=== PATIENT | female | born 1940 | race Asian ===

== ENCOUNTER 2017-08-25 12:36 | Inpatient (IN) | payer OTHER ==
[~2017-08-25] VITALS: Ht 154.9 cm; Wt 54.4 kg
[2017-08-25] MEDS ORDERED: ISOSORBIDE MONO60 M1 PO (12:47)
[2017-08-25] MEDS ORDERED: SIMVASTATIN20 MG ORAL (12:47)
[2017-08-25] MEDS ORDERED: AMLODIPINE BESYL5 MG ORAL (12:47)
[2017-08-25] MEDS ORDERED: ASPIRIN EC81 MG ORAL (12:47)
[2017-08-25] MEDS ORDERED: LOSARTAN-HCTZ1 EACH ORAL (12:47)
[2017-08-25] MEDS ORDERED: OMEPRAZOLE40 M1 ORAL (12:47)
[2017-08-25 13:09] VITALS: BP 144/82
--- NOTE | 2017-08-25 13:28 | Emergency Room Report ---
History of Present Illness General Chief Complaint: Nausea, Vomiting, and Diarrhea Present Illness HPI Patient is a 68-year-old female presents today with complaints of chest painy a week ago. She states the pain is intermittent, lasting minutes and currently 5 out of 10 in severity. She describes pain as throbbing and nonradiating. She states the pain improves with her blood pressure medications. She notes associated shortness of breath, nausea, vomiting and weakness. Last episode of emesis was 2 days ago and she states she has not had an appetite since then. She denies diarrhea, fever, chills, abdominal pain or associated symptoms. She has a history of hypertension, previous heart attacks and quadruple bypass 3 years ago. She's not had a recent stress test. Body Former is Dr. Marks. Patient is a former smoker. (Alexa Call P.A.) Allergies: Coded Allergies: No Known Allergies (Unverified , 08/25/17) Patient History Last Menstrual Period: na Reviewed Nursing Documentation: PMH: Agreed; PSxH: Agreed (Alexa Call P.Peewee) Review of Systems Cardiovascular: Reports: chest pain All Other Systems: negative except mentioned in HPI (Alexa Call P.A.) Physical Exam Vital Signs Date Time Temp Pulse Resp B/P (MAP) Pulse Ox O2 Delivery O2 Flow Rate FiO2 08/25/17 12:32 98.7 110 18 160/90 95 Room Air 98.8 Sp02 EP Interpretation: reviewed, normal General Appearance: no apparent distress, alert, GCS 15, non-toxic Head: normocephalic, atraumatic Eyes: bilateral eye normal inspection, bilateral eye PERRL ENT: hearing grossly normal, normal pharynx, no angioedema, normal voice Neck: full range of motion, supple/symm/no masses Respiratory: chest non-tender, lungs clear, normal breath sounds, speaking full sentences Cardiovascular #1: regular rate, rhythm, no edema Cardiovascular #2: 2+ carotid (R), 2+ carotid (L), 2+ radial (R), 2+ radial (L) , 2+ dorsalis pedis (R), 2+ dorsalis pedis (L) Gastrointestinal: normal bowel sounds, non tender, soft, non-distended, no guarding, no rebound Rectal: deferred Genitourinary: normal inspection, no CVA tenderness Musculoskeletal: back normal, gait/station normal, normal range of motion, non- tender, calf tenderness Neurologic: alert, oriented x3, responsive, motor strength/tone normal, sensory intact, speech normal Psychiatric: judgement/insight normal, memory normal, mood/affect normal, no suicidal/homicidal ideation Reflexes: 3+ bicep (R), 3+ bicep (L), 3+ tricep (R), 3+ tricep (L), 3+ knee (R) , 3+ knee (L) Skin: normal color, no rash, warm/dry, well hydrated Lymphatic: no adenopathy (Alexa Call P.A.) Medical Decision Making PA Attestation Supervising physician is Dr. Parrish Reaction to Intervention: Improved (Alexa Call P.A.) Medicare Attestation Please refer to the initial note for the history exam and presentation, patient was also seen by initial ER physician, at this time reevaluated by myself as well. Patient's d-dimer is mildly elevated. However at bedside patient does not have any shortness of breath or pleurisy. Patient's main complaint at this time was headache and increased dizziness. MRI imaging was obtained. Case discussed with the admitting physician and will follow closely as an inpatient process (Lea Cabrales DO) Diagnostic Impression: Primary Impression: Chest pain Additional Impressions: Nausea and vomiting Shortness of breath Dizziness ER Course The patient is a 76-year-old female with a history of hypertension previous ME who presents today with complaints of chest pain, shortness of breath and nausea. Patientfound to have an elevated d-dimer and VQ scan is ordered. Patient also complaining of dizziness, MRI brain is normal. Multiple reevaluations made, patient stable. Vitals are within normal limits.Discussed case with both Dr. Tania Cabrales physical agreed with findings and disposition. Patient is admitted to medicine. Laboratory Tests Test 08/25/17 22:00 08/26/17 07:10 08/26/17 11:00 08/26/17 15:10 Urine Color Yellow Urine Appearance Slightly cloudy Urine pH 6 (4.5-8.0) Urine Specific [place] 1.020 (1.005-1.035) Urine Protein 3+ (NEGATIVE) H Urine Glucose (UA) Negative (NEGATIVE) Urine Ketones 1+ (NEGATIVE) H Urine Occult Blood 3+ (NEGATIVE) H Urine Nitrite Positive (NEGATIVE) H Urine Bilirubin Negative (NEGATIVE) Urine Urobilinogen 4 MG/DL (0.0-1.0) H Urine Leukocyte Esterase 3+ (NEGATIVE) H Urine RBC 5-10 /HPF (0 - 2) H Urine WBC 10-15 /HPF (0 - 2) H Urine Squamous Epithelial Cells Few /LPF (NONE/OCC) Urine Bacteria Moderate /HPF (NONE) H Urine Osmolality 596 mOsm/kg (429-449) H Urine Random Sodium 42 mmol/L (20-110) White Blood Count 12.4 K/UL (4.8-10.8) H Red Blood Count 3.93 M/UL (4.20-5.40) L Hemoglobin 12.1 G/DL (12.0-16.0) Hematocrit 35.0 % (37.0-47.0) L Mean Corpuscular Volume 89 FL (80-99) Mean Corpuscular Hemoglobin 30.8 PG (27.0-31.0) Mean Corpuscular Hemoglobin Concent 34.6 G/DL (32.0-36.0) Red Cell Distribution Width 11.7 % (11.6-14.8) Platelet Count 198 K/UL (150-450) Mean Platelet Volume 7.6 FL (6.5-10.1) Neutrophils (%) (Auto) 83.5 % (45.0-75.0) H Lymphocytes (%) (Auto) 6.5 % (20.0-45.0) L Monocytes (%) (Auto) 9.5 % (1.0-10.0) Eosinophils (%) (Auto) 0.0 % (0.0-3.0) Basophils (%) (Auto) 0.4 % (0.0-2.0) Sodium Level 134 MMOL/L (136-145) L Potassium Level 3.4 MMOL/L (3.5-5.1) L Chloride Level 97 MMOL/L (98-107) L Carbon Dioxide Level 31 MMOL/L (21-32) Anion Gap 6 mmol/L (5-15) Blood Urea Nitrogen 28 mg/dL (7-18) H Creatinine 1.3 MG/DL (0.55-1.30) Estimate Glomerular Filtration Rate mL/min (>60) Glucose Level 144 MG/DL (74-106) H Osmolality 298 mOsm/kg (297-317) Uric Acid 6.1 MG/DL (2.6-7.2) Calcium Level 8.7 MG/DL (8.5-10.1) Total Bilirubin 0.5 MG/DL (0.2-1.0) Aspartate Amino Transferase (AST) 17 U/L (15-37) Alanine Aminotransferase (ALT) 16 U/L (12-78) Alkaline Phosphatase 61 U/L (46-116) Troponin I 0.000 ng/mL (0.000-0.056) 0.001 ng/mL (0.000-0.056) C-Reactive Protein, Quantitative 20.2 mg/dL (0.00-0.90) H Total Protein 7.0 G/DL (6.4-8.2) Albumin 2.9 G/DL (3.4-5.0) L Globulin 4.1 g/dL Albumin/Globulin Ratio 0.7 (1.0-2.7) L Triglycerides Level 84 MG/DL (30-150) Cholesterol Level 105 MG/DL (< 200) LDL Cholesterol 58 mg/dL (<100) HDL Cholesterol 35 MG/DL (40-60) L Cholesterol/HDL Ratio 3.0 (3.3-4.4) L Thyroid Stimulating Hormone (TSH) 0.178 uiU/mL (0.358-3.740) Free Thyroxine 1.32 NG/DL (0.76-1.46) Free Triiodothyronine 1.4 pg/mL (2.3-4.2) L Cortisol 16.0 UG/DL Prothrombin Time 9.7 SEC (9.30-11.50) Prothrombin Time INR 0.9 (0.9-1.1) PTT 35 SEC (23-33) H D-Dimer 1.52 mg/L FEU (0.00-0.49) H Test 08/27/17 06:25 Troponin I 0.000 ng/mL (0.000-0.056) (Alexa Call P.A.) EKG Diagnostic Results EKG Time: 13:27 Rate: tachycardiac ST Segments: other - t wave inversions, Other Impression RBBB (Alexa Call P.A.) Chest X-Ray Diagnostic Results Chest X-Ray Diagnostic Results : Chest X-Ray Ordered: Yes # of Views/Limited/Complete: 1 View Indication: Chest Pain EP Interpretation: Yes PA Xray: Interpretation reviewed, by supervising MD, and agrees with findings. Interpretation: other (Alexa Call) CT/MRI/US Diagnostic Results CT/MRI/US Diagnostic Results : Impression MRI Brain; Impression: Chronic and age-related changes Old left basal ganglia lacunar infarct Negative for acute intracranial bleed, mass effect, or infarct (Alexa Call) Last Vital Signs Date Time Temp Pulse Resp B/P (MAP) Pulse Ox O2 Delivery O2 Flow Rate FiO2 08/25/17 13:09 98.0 107 19 144/82 94 Room Air 98.0 Status: improved (Alexa Call) Disposition: ADMITTED INPATIENT Condition: Stable Alexa Call Aug 25, 2017 13:28 Lea Cabrales DO Aug 25, 2017 15:12
[2017-08-25 13:42] LABS: ALANINE AMINOTRANSFERASE 9 U/L (12-78); ALKALINE PHOSPHATASE 70 U/L (46-116); ASPARTATE AMINO TRANSFERASE 26 U/L (15-37); CHLORIDE 92 MMOL/L (98-107); CKMB < 0.5 NG/ML (0.0-3.6); CREATINE KINASE 183 U/L (26-308)
[2017-08-25 14:01] LABS: ANION GAP 14 mmol/L (5-15); BLOOD UREA NITROGEN 26 mg/dL (7-18); CARBON DIOXIDE 24 MMOL/L (21-32); CREATININE 0.9 MG/DL (0.55-1.30); POTASSIUM 3.5 MMOL/L (3.5-5.1); SODIUM 129 MMOL/L (136-145)
[2017-08-25 14:13] LABS: HEMATOCRIT 36.2 % (37.0-47.0); HEMOGLOBIN 12.5 G/DL (12.0-16.0); MEAN CORPUSCULAR VOLUME 89 FL (80-99); PLATELET COUNT 182 K/UL (150-450); RED BLOOD COUNT 4.07 M/UL (4.20-5.40); RED CELL DISTRIBUTION WIDTH 11.3 % (11.6-14.8); WHITE BLOOD COUNT 12.8 K/UL (4.8-10.8)
--- NOTE | 2017-08-25 14:13 | Diagnostic Imaging Report ---
Indication: Chest pain Technique: One view of the chest Comparison: none Findings: Clustered calcifications is seen in the right infrahilar region as well as small scattered parenchymal calcification in the right lung. There is slight blunting of left costophrenic sulcus. Lungs and pleural spaces are otherwise clear. Heart size is normal. Evidence of prior CABG Impression: Calcifications in the right lung, likely on the basis of old granulomatous disease Possible small left pleural effusion No acute process otherwise Other findings as noted
[2017-08-25 14:23] LABS: ALBUMIN 3.3 G/DL (3.4-5.0); ALBUMIN/GLOBULIN RATIO 0.7 (1.0-2.7)
[2017-08-25 15:00] VITALS: BP 141/73
[2017-08-25] MEDS ORDERED: Miralax 17gm pkt ORAL PRN (15:15)
[2017-08-25] MEDS ORDERED: Enalaprilat 2.5mg/2ml Inj IV PRN (15:15)
[2017-08-25] MEDS ORDERED: dilTIAZem HCl 25mg/5ml Inj IV PRN (15:15)
[2017-08-25] MEDS ORDERED: Nitroglycerin Subl 0.4mg tab SL PRN (15:15)
[2017-08-25] MEDS ORDERED: Albuterol/Ipratropium 3ml neb HHN PRN (15:15)
[2017-08-25] MEDS ORDERED: Morphine Sulfate 4mg/ml Inj IVP PRN (15:15)
--- NOTE | 2017-08-25 15:27 | Diagnostic Imaging Report ---
Indication: Dizziness, vertigo, altered mental status Technique: sagittal T1 fast spin echo, axial T1 FLAIR, axial T2 FLAIR, axial T2 FS PROPELLER, axial T2* GRE, axial diffusion weighted images. ADC and exponential ADC maps generated Comparison: Findings: No abnormal areas of restricted diffusion to suggest acute infarction. No acute hemorrhage or edema. No mass effect nor midline shift. There is mild age-related enlargement of the ventricles and extra-axial CSF spaces. There is minimal periventricular deep white matter high T2 signal consistent with chronic ischemic change. Old lacunar infarct is seen in the left lentiform nucleus. The vascular flow voids are preserved.. There is evidence of prior bilateral cataract surgery. The sinuses are unremarkable. Impression: Chronic and age-related changes Old left basal ganglia lacunar infarct Negative for acute intracranial bleed, mass effect, or infarct
[2017-08-25 16:30] VITALS: BP 154/90
--- NOTE | 2017-08-25 18:27 | Cardiology Progress Note ---
Assessment/Plan Assessment/Plan [id number] unless trop is neg or echo shows swma i will not perform cardic imagin orthostatic vital consider spep will have sternnal sereis usul med keep off diurtic for now Objective Last 24 Hour Vital Signs Date Time Temp Pulse Resp B/P (MAP) Pulse Ox O2 Delivery O2 Flow Rate FiO2 08/25/17 17:16 96 154/90 08/25/17 16:43 96 08/25/17 16:30 97.9 95 19 154/90 93 Room Air 97.9 08/25/17 15:00 98.0 97 19 141/73 97 Room Air 98.0 08/25/17 13:09 98.0 107 19 144/82 94 Room Air 98.0 08/25/17 12:32 98.7 110 18 160/90 95 Room Air 98.8 Laboratory Tests Test 08/25/17 12:50 08/25/17 13:00 08/25/17 14:00 Sodium Level 129 MMOL/L (136-145) L Potassium Level 3.5 MMOL/L (3.5-5.1) Chloride Level 92 MMOL/L (98-107) L Carbon Dioxide Level 24 MMOL/L (21-32) Anion Gap 14 mmol/L (5-15) Blood Urea Nitrogen 26 mg/dL (7-18) H Creatinine 0.9 MG/DL (0.55-1.30) Estimat Glomerular Filtration Rate mL/min (>60) Glucose Level 162 MG/DL (74-106) H Calcium Level 9.0 MG/DL (8.5-10.1) Total Bilirubin 1.0 MG/DL (0.2-1.0) Aspartate Amino Transf (AST/SGOT) 26 U/L (15-37) Alanine Aminotransferase (ALT/SGPT) 9 U/L (12-78) L Alkaline Phosphatase 70 U/L (46-116) Total Creatine Kinase 183 U/L (26-308) Creatine Kinase MB < 0.5 NG/ML (0.0-3.6) Creatine Kinase MB Relative Index 0.2 Troponin I 0.017 ng/mL (0.000-0.056) Total Protein 8.3 G/DL (6.4-8.2) H Albumin 3.3 G/DL (3.4-5.0) L Globulin 5.0 g/dL Albumin/Globulin Ratio 0.7 (1.0-2.7) L D-Dimer 1.80 mg/L FEU (0.00-0.49) H White Blood Count 12.8 K/UL (4.8-10.8) H Red Blood Count 4.07 M/UL (4.20-5.40) L Hemoglobin 12.5 G/DL (12.0-16.0) Hematocrit 36.2 % (37.0-47.0) L Mean Corpuscular Volume 89 FL (80-99) Mean Corpuscular Hemoglobin 30.8 PG (27.0-31.0) Mean Corpuscular Hemoglobin Concent 34.6 G/DL (32.0-36.0) Red Cell Distribution Width 11.3 % (11.6-14.8) L Platelet Count 182 K/UL (150-450) Mean Platelet Volume 6.9 FL (6.5-10.1) Neutrophils (%) (Auto) % (45.0-75.0) Lymphocytes (%) (Auto) % (20.0-45.0) Monocytes (%) (Auto) % (1.0-10.0) Eosinophils (%) (Auto) % (0.0-3.0) Basophils (%) (Auto) % (0.0-2.0) Differential Total Cells Counted 100 Neutrophils % (Manual) 88 % (45-75) H Lymphocytes % (Manual) 6 % (20-45) L Monocytes % (Manual) 4 % (1-10) Eosinophils % (Manual) 0 % (0-3) Basophils % (Manual) 0 % (0-2) Band Neutrophils 2 % (0-8) Platelet Estimate Adequate Platelet Morphology Normal Red Blood Cell Morphology Hypochromasia 1+ MARLEEN DUVALL Aug 25, 2017 18:27
[2017-08-25] MEDS ORDERED: Imdur 30mg tab ORAL SCH (18:30)
--- NOTE | 2017-08-25 18:54 | History and Physical ---
History of Present Illness General Date patient seen: Aug 25, 2017 Reason for Hospitalization: Nausea, Vomiting, and Diarrhea Present Illness HPI 68-year-old female with hx of CAD, CABG, HTN presented to ER with complaints of chest pain for a week, the pain is intermittent, lasting minutes and currently 5 out of 10 in severity. She is also c/o shortness of breath, nausea , vomiting and weakness. Last episode of emesis was 2 days ago and she states she has not had an appetite since then. She denies diarrhea, fever, chills, abdominal pain or associated symptoms. She is admitted to telemetry for further evaluation. Allergies: Coded Allergies: No Known Allergies (Unverified , 08/25/17) Medication History Scheduled Amlodipine Besylate* (Amlodipine Besylate*), 5 MG ORAL DAILY, (Reported) Aspirin Ec* (Aspirin Ec*), 81 MG ORAL DAILY, (Reported) Isosorbide Mononitrate (Isosorbide Mononitrate Er), 60 MG PO DAILY, (Reported) Losartan/Hydrochlorothiazide (Losartan-Hctz 100-12.5 Mg Tab), 1 TAB ORAL DAILY, (Reported) Omeprazole (Omeprazole), 40 MG ORAL DAILY, (Reported) Simvastatin (Zocor), 20 MG ORAL BEDTIME, (Reported) Patient History Healthcare decision maker N Resuscitation status Full Code Advanced Directive on File Past Medical/Surgical History Past Medical/Surgical History: (1) CAD (coronary artery disease) (2) Hx of CABG (3) History of hypertension Review of Systems All Other Systems: negative except mentioned in HPI Physical Exam General Appearance: WD/WN, no apparent distress Lines, tubes and drains: peripheral HEENT: normocephalic, atraumatic Neck: non-tender, normal alignment Respiratory/Chest: chest wall non-tender, lungs clear, decreased breath sounds Breasts: no masses Cardiovascular/Chest: normal peripheral pulses, normal rate Abdomen: normal bowel sounds, non tender Genitourinary/Rectal: normal genital exam Extremities: normal range of motion, non-pitting Last 24 Hour Vital Signs Date Time Temp Pulse Resp B/P (MAP) Pulse Ox O2 Delivery O2 Flow Rate FiO2 08/25/17 18:50 154/90 08/25/17 17:16 96 154/90 08/25/17 16:43 96 08/25/17 16:30 97.9 95 19 154/90 93 Room Air 97.9 08/25/17 15:00 98.0 97 19 141/73 97 Room Air 98.0 08/25/17 13:09 98.0 107 19 144/82 94 Room Air 98.0 08/25/17 12:32 98.7 110 18 160/90 95 Room Air 98.8 Laboratory Tests Test 08/25/17 12:50 08/25/17 13:00 08/25/17 14:00 Sodium Level 129 MMOL/L (136-145) L Potassium Level 3.5 MMOL/L (3.5-5.1) Chloride Level 92 MMOL/L (98-107) L Carbon Dioxide Level 24 MMOL/L (21-32) Anion Gap 14 mmol/L (5-15) Blood Urea Nitrogen 26 mg/dL (7-18) H Creatinine 0.9 MG/DL (0.55-1.30) Estimat Glomerular Filtration Rate mL/min (>60) Glucose Level 162 MG/DL (74-106) H Calcium Level 9.0 MG/DL (8.5-10.1) Total Bilirubin 1.0 MG/DL (0.2-1.0) Aspartate Amino Transf (AST/SGOT) 26 U/L (15-37) Alanine Aminotransferase (ALT/SGPT) 9 U/L (12-78) L Alkaline Phosphatase 70 U/L (46-116) Total Creatine Kinase 183 U/L (26-308) Creatine Kinase MB < 0.5 NG/ML (0.0-3.6) Creatine Kinase MB Relative Index 0.2 Troponin I 0.017 ng/mL (0.000-0.056) Total Protein 8.3 G/DL (6.4-8.2) H Albumin 3.3 G/DL (3.4-5.0) L Globulin 5.0 g/dL Albumin/Globulin Ratio 0.7 (1.0-2.7) L D-Dimer 1.80 mg/L FEU (0.00-0.49) H White Blood Count 12.8 K/UL (4.8-10.8) H Red Blood Count 4.07 M/UL (4.20-5.40) L Hemoglobin 12.5 G/DL (12.0-16.0) Hematocrit 36.2 % (37.0-47.0) L Mean Corpuscular Volume 89 FL (80-99) Mean Corpuscular Hemoglobin 30.8 PG (27.0-31.0) Mean Corpuscular Hemoglobin Concent 34.6 G/DL (32.0-36.0) Red Cell Distribution Width 11.3 % (11.6-14.8) L Platelet Count 182 K/UL (150-450) Mean Platelet Volume 6.9 FL (6.5-10.1) Neutrophils (%) (Auto) % (45.0-75.0) Lymphocytes (%) (Auto) % (20.0-45.0) Monocytes (%) (Auto) % (1.0-10.0) Eosinophils (%) (Auto) % (0.0-3.0) Basophils (%) (Auto) % (0.0-2.0) Differential Total Cells Counted 100 Neutrophils % (Manual) 88 % (45-75) H Lymphocytes % (Manual) 6 % (20-45) L Monocytes % (Manual) 4 % (1-10) Eosinophils % (Manual) 0 % (0-3) Basophils % (Manual) 0 % (0-2) Band Neutrophils 2 % (0-8) Platelet Estimate Adequate Platelet Morphology Normal Red Blood Cell Morphology Hypochromasia 1+ Height (Feet): 5 Height (Inches): 1.00 Weight (Pounds): 120 Medications Current Medications Medications (Trade) Dose Ordered Sig/Rick Route PRN Reason Start Time Stop Time Status Last Admin Dose Admin Acetaminophen (Tylenol) 650 mg Q4H PRN ORAL FEVER 08/25/17 15:15 09/24/17 15:14 Albuterol/ Ipratropium (Albuterol/ Ipratropium) 3 ml EVERY 4 HOURS PRN HHN Shortness of Breath 08/25/17 15:15 08/30/17 15:14 Amlodipine Besylate (Norvasc) 5 mg DAILY@1700 ORAL 08/25/17 17:00 09/24/17 16:59 08/25/17 17:16 Aspirin (Ecotrin) 81 mg DAILY ORAL 08/26/17 09:00 09/25/17 08:59 Atorvastatin Calcium (Lipitor) 20 mg BEDTIME ORAL 08/25/17 21:00 09/24/17 20:59 Diltiazem HCl (Cardizem) 10 mg EVERY HOUR PRN IV heart rate more than 120, 08/25/17 15:15 09/24/17 15:14 Enalaprilat (Vasotec) 2.5 mg EVERY 6 HOURS PRN IV sbp more than 160 08/25/17 15:15 09/24/17 15:14 Heparin Sodium (Porcine) (Heparin 5000 units/ml) 5,000 units EVERY 12 HOURS SUBQ 08/25/17 21:00 09/24/17 20:59 Isosorbide Mononitrate (Imdur) 30 mg DAILY ORAL 08/25/17 18:30 09/24/17 18:29 08/25/17 18:50 Losartan Potassium (Cozaar) 50 mg DAILY ORAL 08/26/17 09:00 09/25/17 08:59 Morphine Sulfate (Morphine Sulfate) 2 mg EVERY 4 HOURS PRN IVP severe Pain (Pain Scale 7-10) 08/25/17 15:15 09/01/17 15:14 Nitroglycerin (Ntg) 0.4 mg Every 5 Minutes PRN SL Prn Chest Pain 08/25/17 15:15 09/24/17 15:14 Ondansetron HCl (Zofran) 4 mg Q6H PRN IVP Nausea & Vomiting 08/25/17 15:15 09/24/17 15:14 Polyethylene Glycol (Miralax) 17 gm DAILYPRN PRN ORAL Constipation 08/25/17 15:15 09/24/17 15:14 Temazepam (Restoril) 15 mg HSPRN PRN ORAL Insomnia 08/25/17 15:15 09/01/17 15:14 Assessment/Plan Problem List: (1) Chest pain ICD Codes: R07.9 - Chest pain, unspecified SNOMED: 44402446 (2) Shortness of breath ICD Codes: R06.02 - Shortness of breath SNOMED: 456409465 (3) Nausea and vomiting ICD Codes: R11.2 - Nausea with vomiting, unspecified SNOMED: 73360593 (4) Leucocytosis ICD Codes: D72.829 - Elevated white blood cell count, unspecified SNOMED: 871097758, 810844104 (5) Hx of CABG ICD Codes: Z95.1 - Presence of aortocoronary bypass graft SNOMED: 395214696, 463503710 (6) History of hypertension ICD Codes: Z86.79 - Personal history of other diseases of the circulatory system SNOMED: 685694178 (7) CAD (coronary artery disease) ICD Codes: I25.10 - Atherosclerotic heart disease of [place] coronary artery without angina pectoris SNOMED: 33062113 Assessment/Plan serial ekg, troponin echocardiogram cardiology evaluation monitor BP check cultures ID to evaluate leucocytosis Amber Ryan MD Aug 25, 2017 18:54
[2017-08-25 20:00] VITALS: BP 115/64
[2017-08-25] MEDS: Atorvastatin 20mg tab ORAL SCH (20:29)
[2017-08-25] MEDS: Heparin 5000 units/ml inj SUBQ SCH (20:30)
--- NOTE | 2017-08-25 22:30 | Consultation ---
DATE OF CONSULTATION: 08/25/2017 CARDIOLOGY CONSULTATION CONSULTING PHYSICIAN: Patrice Ray M.D. REFERRING PHYSICIAN: Amber Ryan M.D. REASON FOR REFERRAL: Chest pain. HISTORY OF PRESENT ILLNESS: This is a 76-year-old [place] female, who speaks some [place] and mostly [place]ian. Information is obtained from one of our nursing staff who does speak Estonian. It appears that the patient has had some problems with some kind of sensation in her head as if hearing noises and at the same time, she had some pain in the chest at that time too. As I understand, the pains have been going on for some time. They get worse or improve in certain situations. There is no really relieving or exacerbating factor identified by the patient. No change with twisting and turning or coughing or taking a deep breath or walking. She is somewhat active. She walks to the store. She walks around the house. She does not seem to have to stop her activities because of these chest pain. There is no PND or orthopnea. She uses one pillow. There is occasional dizziness when she stands up and occasional palpitations. PAST MEDICAL HISTORY: Coronary artery disease, status post coronary artery bypass grafting. She really did not have any symptoms prior to her bypass grafting that was identified as part of a workup of some evaluation that was performed. She does not have diabetes, does have high blood pressure. No history of heart attack. No cancer. No stroke. No hepatitis or tuberculosis. No emphysema. No ulcers. No kidney problems. No liver problems, thyroid problems, anemia, or arthritis. She has a history of asthma. She has some kind of gynecological problem. She has had a hysterectomy and some ovarian problem that she had surgery, although apparently not removed. ALLERGIES: She is not allergic to any medication. SOCIAL HISTORY: She quit smoking more than 20 years ago when she had a bypass surgery. No alcoholic beverages. REVIEW OF SYSTEMS: GASTROINTESTINAL: She has had some change in the color of her stool that is darker. GENITOURINARY: She denies. PULMONARY: She does have a history of asthma. CONSTITUTIONAL: She denies. NEUROLOGIC: She has some numbness and tingling sensation in her toes. PHYSICAL EXAMINATION: GENERAL: Shows to be elderly female, in no respiratory distress. VITAL SIGNS: Blood pressure is 154/90, heart rate of 96, and temperature 98 degrees. NECK: Supple. No jugular venous distention. LUNGS: Clear to auscultation and percussion. CARDIAC: S1 is normal. S2 is normal. There is a systolic ejection murmur. No RV lifts, heaves, or thrills noted. ABDOMEN: Soft and nontender. Positive bowel sounds. EXTREMITIES: There is no edema. NEUROLOGIC: She is awake, alert, and responsive. LABORATORY AND DIAGNOSTIC DATA: Sodium 129, potassium 3.5, chloride 92, bicarbonate 24, BUN 26, creatinine 0.9, and glucose of 162. Troponin of 0.17. Total protein is 8.3, albumin of 3.3, and gamma globulins of 5. D-dimer is 1.8. Chest x-ray was performed in the emergency room that supposedly calcification of the right lung, likely of old granulomatous disease, possible small left pleural effusion. No otherwise acute processes. MRI of the brain that shows chronic and age-related changes, old basal ganglia lacunar infarction. Negative for acute intracranial bleed, mass effects, or infarcts. EKG shows normal sinus rhythm with leftward axis, incomplete left bundle-branch conduction defect. Some nonspecific T-wave changes, although the T-wave inversion in V1 through V4, may be related to the right bundle conduction defect. ASSESSMENT AND PLAN: 1. Atypical chest pain. 2. Head noises. 3. Coronary artery disease, status post coronary artery bypass grafting. 4. History of asthma. 5. Hypertension. Dr. Ryan, this patient was seen in cardiac consultation. The patient has had this pain chronically for a number of months, yet cardiac enzymes are negative. EKG looks negative. She does have some elevated blood pressure readings. She does have some elevated gamma globulin and she should probably have an echocardiogram because of a heart murmur and to evaluate for segmental wall motion abnormalities. Unless cardiac enzymes are kind of abnormal or the patient's echocardiogram is abnormal, I probably would not pursue the cardiac workup at this time. She may consider doing outpatient workup in the near future. Her blood pressure medications should be continued to address her elevated blood pressure readings including losartan without hydrochlorothiazide as well as amlodipine 5 mg and she should be continued on her simvastatin and aspirin as well. Orthostatic vitals will be ordered because of some of her symptoms that she indicated she had. Patrice Ray M.D. DR: ED JOB#: [id number] CC:
[2017-08-25 22:44] LABS: APPEARANCE,URINE SLIGHTLY CLOUDY; BILIRUBIN, URINE NEGATIVE (NEGATIVE); COLOR,URINE YELLOW; GLUCOSE, URINE (UA) NEGATIVE (NEGATIVE); KETONES,URINE 1+ (NEGATIVE); LEUKOCYTE ESTERASE ,URINE 3+ (NEGATIVE); NITRITE,URINE POSITIVE (NEGATIVE); PH,URINE 6 (4.5-8.0); PROTEIN,URINE 3+ (NEGATIVE); UROBILINOGEN,URINE 4 MG/DL (0.0-1.0)
[2017-08-26] VITALS (7 sets, daily range): BP systolic 102–140; BP diastolic 60–84
[2017-08-26] MEDS: Aspirin EC 81mg tab ORAL SCH (08:58)
[2017-08-26] MEDS ORDERED: Aspirin Baby 81mg ORAL SCH (09:00)
[2017-08-26] MEDS ORDERED: Losartan 50mg tab ORAL SCH (09:00)
[2017-08-26] MEDS: Heparin 5000 units/ml inj SUBQ SCH ×2 (09:05→21:03)
[2017-08-26 09:07] LABS: BASOPHILS % (AUTO) 0.4 % (0.0-2.0); HEMOGLOBIN 12.1 G/DL (12.0-16.0); LYMPHOCYTES % (AUTO) 6.5 % (20.0-45.0); MEAN CORPUSCULAR VOLUME 89 FL (80-99); MONOCYTES % (AUTO) 9.5 % (1.0-10.0); NEUTROPHILS % (AUTO) 83.5 % (45.0-75.0); PLATELET COUNT 198 K/UL (150-450); RED BLOOD COUNT 3.93 M/UL (4.20-5.40); RED CELL DISTRIBUTION WIDTH 11.7 % (11.6-14.8); WHITE BLOOD COUNT 12.4 K/UL (4.8-10.8)
[2017-08-26 11:49] LABS: INR 0.9 (0.9-1.1)
--- NOTE | 2017-08-26 11:54 | Pulmonology Progress Note ---
Assessment/Plan Problems: (1) Chest pain (2) Shortness of breath (3) Nausea and vomiting (4) Leucocytosis (5) Hx of CABG (6) History of hypertension (7) CAD (coronary artery disease) Assessment/Plan all troponin negative echo reviewed Na still low most likely secondary to HCTZ symptomatic treatment f/u WBC Subjective ROS Limited/Unobtainable: No Interval Events: no new complains Constitutional: Reports: no symptoms Allergies: Coded Allergies: No Known Allergies (Unverified , 08/25/17) Objective Last 24 Hour Vital Signs Date Time Temp Pulse Resp B/P (MAP) Pulse Ox O2 Delivery O2 Flow Rate FiO2 08/26/17 10:11 75 16 Room Air 21 08/26/17 08:00 98.2 77 18 103/63 96 Room Air 98.2 08/26/17 08:00 78 08/26/17 04:00 74 08/26/17 04:00 97.0 72 20 110/60 98 Room Air 97.0 08/26/17 01:30 99.0 99.0 08/26/17 01:29 99.0 08/26/17 00:30 102.0 08/26/17 00:00 102.0 110 20 140/84 95 Room Air 102.0 08/26/17 00:00 118 08/25/17 20:00 98.4 79 19 115/64 95 Room Air 98.4 08/25/17 20:00 79 08/25/17 18:50 154/90 08/25/17 17:16 96 154/90 08/25/17 16:43 96 08/25/17 16:30 97.9 95 19 154/90 93 Room Air 97.9 08/25/17 16:20 98.0 97 19 141/73 97 Room Air 98.0 08/25/17 15:00 98.0 97 19 141/73 97 Room Air 98.0 08/25/17 13:09 98.0 107 19 144/82 94 Room Air 98.0 08/25/17 12:32 98.7 110 18 160/90 95 Room Air 98.8 Intake and Output 08/25/17 08/26/17 19:00 07:00 Intake Total 250 ml 120 ml Balance 250 ml 120 ml Intake Oral 250 ml 120 ml # Voids 1 3 General Appearance: WD/WN, no acute distress HEENT: atraumatic Respiratory/Chest: normal breath sounds Abdomen: normal bowel sounds, soft, non tender Extremities: no cyanosis Skin: no ulcers 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, no motor/sensory deficits Microbiology Date/Time Source Procedure Growth Status 08/25/17 22:00 Urine,Clean Catch Urine Culture - Preliminary Resulted Laboratory Tests 08/25/17 12:50: Sodium Level 129L, Potassium Level 3.5, Chloride Level 92L, Carbon Dioxide Level 24, Anion Gap 14, Blood Urea Nitrogen 26H, Creatinine 0.9, Estimat Glomerular Filtration Rate , Glucose Level 162H, Calcium Level 9.0, Total Bilirubin 1.0, Aspartate Amino Transf (AST/SGOT) 26, Alanine Aminotransferase ( ALT/SGPT) 9L, Alkaline Phosphatase 70, Total Creatine Kinase 183, Creatine Kinase MB < 0.5, Creatine Kinase MB Relative Index 0.2, Troponin I 0.017, Total Protein 8.3H, Albumin 3.3L, Globulin 5.0, Albumin/Globulin Ratio 0.7L 08/25/17 13:00: D-Dimer 1.80H 08/25/17 14:00: White Blood Count 12.8H, Red Blood Count 4.07L, Hemoglobin 12.5, Hematocrit 36.2L, Mean Corpuscular Volume 89, Mean Corpuscular Hemoglobin 30.8, Mean Corpuscular Hemoglobin Concent 34.6, Red Cell Distribution Width 11.3L, Platelet Count 182, Mean Platelet Volume 6.9, Neutrophils (%) (Auto) , Lymphocytes (%) (Auto) , Monocytes (%) (Auto) , Eosinophils (%) (Auto) , Basophils (%) (Auto) , Differential Total Cells Counted 100, Neutrophils % ( Manual) 88H, Lymphocytes % (Manual) 6L, Monocytes % (Manual) 4, Eosinophils % ( Manual) 0, Basophils % (Manual) 0, Band Neutrophils 2, Platelet Estimate Adequate, Platelet Morphology Normal, Red Blood Cell Morphology , Hypochromasia 1+ 08/25/17 22:00: Urine Color Yellow, Urine Appearance Slightly cloudy, Urine pH 6, Urine Specific [place] 1.020, Urine Protein 3+H, Urine Glucose (UA) Negative, Urine Ketones 1+H, Urine Occult Blood 3+H, Urine Nitrite PositiveH, Urine Bilirubin Negative, Urine Urobilinogen 4H, Urine Leukocyte Esterase 3+H, Urine RBC 5-10H, Urine WBC 10-15H, Urine Squamous Epithelial Cells Few, Urine Bacteria ModerateH , Urine Osmolality 596H, Urine Random Sodium 42 08/26/17 07:10: White Blood Count 12.4H, Red Blood Count 3.93L, Hemoglobin 12.1, Hematocrit 35.0L, Mean Corpuscular Volume 89, Mean Corpuscular Hemoglobin 30.8, Mean Corpuscular Hemoglobin Concent 34.6, Red Cell Distribution Width 11.7, Platelet Count 198, Mean Platelet Volume 7.6, Neutrophils (%) (Auto) 83.5H, Lymphocytes ( %) (Auto) 6.5L, Monocytes (%) (Auto) 9.5, Eosinophils (%) (Auto) 0.0, Basophils (%) (Auto) 0.4, Osmolality 298, Uric Acid [Pending], Troponin I 0.000, C- Reactive Protein, Quantitative 20.2H, Triglycerides Level [Pending], Cholesterol Level [Pending], LDL Cholesterol [Pending], HDL Cholesterol [Pending ], Cholesterol/HDL Ratio [Pending], Thyroid Stimulating Hormone (TSH) [Pending] , Free Thyroxine [Pending], Free Triiodothyronine [Pending], Cortisol [Pending] 08/26/17 11:00: Prothrombin Time 9.7, Prothromb Time International Ratio 0.9, Activated Partial Thromboplast Time 35H, D-Dimer [Pending] Current Medications Medications (Trade) Dose Ordered Sig/Rick Route PRN Reason Start Time Stop Time Status Last Admin Dose Admin Acetaminophen (Tylenol) 650 mg Q4H PRN ORAL FEVER 08/25/17 15:15 09/24/17 15:14 08/26/17 00:30 Albuterol/ Ipratropium (Albuterol/ Ipratropium) 3 ml EVERY 4 HOURS PRN HHN Shortness of Breath 08/25/17 15:15 08/30/17 15:14 Amlodipine Besylate (Norvasc) 5 mg DAILY@1700 ORAL 08/26/17 17:00 09/25/17 16:59 Aspirin (Ecotrin) 81 mg DAILY ORAL 08/26/17 09:00 09/25/17 08:59 08/26/17 08:58 Atorvastatin Calcium (Lipitor) 20 mg BEDTIME ORAL 08/25/17 21:00 09/24/17 20:59 08/25/17 20:29 Diltiazem HCl (Cardizem) 10 mg EVERY HOUR PRN IV heart rate more than 120, 08/25/17 15:15 09/24/17 15:14 Enalaprilat (Vasotec) 2.5 mg EVERY 6 HOURS PRN IV sbp more than 160 08/25/17 15:15 09/24/17 15:14 Heparin Sodium (Porcine) (Heparin 5000 units/ml) 5,000 units EVERY 12 HOURS SUBQ 08/25/17 21:00 09/24/17 20:59 08/26/17 09:05 Isosorbide Mononitrate (Imdur) 30 mg DAILY ORAL 08/27/17 09:00 09/26/17 08:59 Losartan Potassium (Cozaar) 50 mg DAILY ORAL 08/27/17 09:00 09/26/17 08:59 Morphine Sulfate (Morphine Sulfate) 2 mg EVERY 4 HOURS PRN IVP severe Pain (Pain Scale 7-10) 08/25/17 15:15 09/01/17 15:14 Nitroglycerin (Ntg) 0.4 mg Every 5 Minutes PRN SL Prn Chest Pain 08/25/17 15:15 09/24/17 15:14 Ondansetron HCl (Zofran) 4 mg Q6H PRN IVP Nausea & Vomiting 08/25/17 15:15 09/24/17 15:14 Polyethylene Glycol (Miralax) 17 gm DAILYPRN PRN ORAL Constipation 08/25/17 15:15 09/24/17 15:14 Temazepam (Restoril) 15 mg HSPRN PRN ORAL Insomnia 08/25/17 15:15 09/01/17 15:14 08/25/17 22:13 Amber Ryan MD Aug 26, 2017 11:54
[2017-08-26 12:10] LABS: CHOLESTEROL 105 MG/DL (< 200); HDL CHOLESTEROL 35 MG/DL (40-60); TRIGLYCERIDES 84 MG/DL (30-150)
--- NOTE | 2017-08-26 12:43 | Cardiology Progress Note ---
Assessment/Plan Assessment/Plan 1. Atypical chest pain. 2. Head noises. 3. Coronary artery disease, status post coronary artery bypass grafting. 4. History of asthma. 5. Hypertension. low grade fever asdn leukocytosis appear tremulous trop neg tele neg orthosatic vital neg mid nite i have stopped her antihypertensive meds today for now jenny reninstate as needed bp seem ok at this time Subjective Cardiovascular: Reports: lightheadedness - weak ; Denies: chest pain Respiratory: Reports: shortness of breath Gastrointestinal/Abdominal: Denies: abdominal pain Genitourinary: Denies: burning Objective Last 24 Hour Vital Signs Date Time Temp Pulse Resp B/P (MAP) Pulse Ox O2 Delivery O2 Flow Rate FiO2 08/26/17 12:05 93 08/26/17 12:00 87 08/26/17 12:00 99.7 97 18 125/69 96 Room Air 99.7 08/26/17 11:55 97 08/26/17 10:11 75 16 Room Air 21 08/26/17 08:00 98.2 77 18 103/63 96 Room Air 98.2 08/26/17 08:00 78 08/26/17 04:00 74 08/26/17 04:00 97.0 72 20 110/60 98 Room Air 97.0 08/26/17 01:30 99.0 99.0 08/26/17 01:29 99.0 08/26/17 00:30 102.0 08/26/17 00:00 102.0 110 20 140/84 95 Room Air 102.0 08/26/17 00:00 118 08/25/17 20:00 98.4 79 19 115/64 95 Room Air 98.4 08/25/17 20:00 79 08/25/17 18:50 154/90 08/25/17 17:16 96 154/90 08/25/17 16:43 96 08/25/17 16:30 97.9 95 19 154/90 93 Room Air 97.9 08/25/17 16:20 98.0 97 19 141/73 97 Room Air 98.0 08/25/17 15:00 98.0 97 19 141/73 97 Room Air 98.0 08/25/17 13:09 98.0 107 19 144/82 94 Room Air 98.0 General Appearance: no apparent distress Neck: no JVD Cardiovascular: normal rate, regular rhythm Respiratory/Chest: crackles/rales - left base Abdomen: normal bowel sounds, non tender, soft Extremities: no swelling Intake and Output 08/25/17 08/26/17 19:00 07:00 Intake Total 250 ml 120 ml Balance 250 ml 120 ml Intake Oral 250 ml 120 ml # Voids 1 3 Laboratory Tests Test 08/25/17 12:50 08/25/17 13:00 08/25/17 14:00 08/25/17 22:00 Sodium Level 129 MMOL/L (136-145) L Potassium Level 3.5 MMOL/L (3.5-5.1) Chloride Level 92 MMOL/L (98-107) L Carbon Dioxide Level 24 MMOL/L (21-32) Anion Gap 14 mmol/L (5-15) Blood Urea Nitrogen 26 mg/dL (7-18) H Creatinine 0.9 MG/DL (0.55-1.30) Estimat Glomerular Filtration Rate mL/min (>60) Glucose Level 162 MG/DL (74-106) H Calcium Level 9.0 MG/DL (8.5-10.1) Total Bilirubin 1.0 MG/DL (0.2-1.0) Aspartate Amino Transf (AST/SGOT) 26 U/L (15-37) Alanine Aminotransferase (ALT/SGPT) 9 U/L (12-78) L Alkaline Phosphatase 70 U/L (46-116) Total Creatine Kinase 183 U/L (26-308) Creatine Kinase MB < 0.5 NG/ML (0.0-3.6) Creatine Kinase MB Relative Index 0.2 Troponin I 0.017 ng/mL (0.000-0.056) Total Protein 8.3 G/DL (6.4-8.2) H Albumin 3.3 G/DL (3.4-5.0) L Globulin 5.0 g/dL Albumin/Globulin Ratio 0.7 (1.0-2.7) L D-Dimer 1.80 mg/L FEU (0.00-0.49) H White Blood Count 12.8 K/UL (4.8-10.8) H Red Blood Count 4.07 M/UL (4.20-5.40) L Hemoglobin 12.5 G/DL (12.0-16.0) Hematocrit 36.2 % (37.0-47.0) L Mean Corpuscular Volume 89 FL (80-99) Mean Corpuscular Hemoglobin 30.8 PG (27.0-31.0) Mean Corpuscular Hemoglobin Concent 34.6 G/DL (32.0-36.0) Red Cell Distribution Width 11.3 % (11.6-14.8) L Platelet Count 182 K/UL (150-450) Mean Platelet Volume 6.9 FL (6.5-10.1) Neutrophils (%) (Auto) % (45.0-75.0) Lymphocytes (%) (Auto) % (20.0-45.0) Monocytes (%) (Auto) % (1.0-10.0) Eosinophils (%) (Auto) % (0.0-3.0) Basophils (%) (Auto) % (0.0-2.0) Differential Total Cells Counted 100 Neutrophils % (Manual) 88 % (45-75) H Lymphocytes % (Manual) 6 % (20-45) L Monocytes % (Manual) 4 % (1-10) Eosinophils % (Manual) 0 % (0-3) Basophils % (Manual) 0 % (0-2) Band Neutrophils 2 % (0-8) Platelet Estimate Adequate Platelet Morphology Normal Red Blood Cell Morphology Hypochromasia 1+ Urine Color Yellow Urine Appearance Slightly cloudy Urine pH 6 (4.5-8.0) Urine Specific [place] 1.020 (1.005-1.035) Urine Protein 3+ (NEGATIVE) H Urine Glucose (UA) Negative (NEGATIVE) Urine Ketones 1+ (NEGATIVE) H Urine Occult Blood 3+ (NEGATIVE) H Urine Nitrite Positive (NEGATIVE) H Urine Bilirubin Negative (NEGATIVE) Urine Urobilinogen 4 MG/DL (0.0-1.0) H Urine Leukocyte Esterase 3+ (NEGATIVE) H Urine RBC 5-10 /HPF (0 - 2) H Urine WBC 10-15 /HPF (0 - 2) H Urine Squamous Epithelial Cells Few /LPF (NONE/OCC) Urine Bacteria Moderate /HPF (NONE) H Urine Osmolality 596 mOsm/kg (429-449) H Urine Random Sodium 42 mmol/L (20-110) Test 08/26/17 07:10 08/26/17 11:00 White Blood Count 12.4 K/UL (4.8-10.8) H Red Blood Count 3.93 M/UL (4.20-5.40) L Hemoglobin 12.1 G/DL (12.0-16.0) Hematocrit 35.0 % (37.0-47.0) L Mean Corpuscular Volume 89 FL (80-99) Mean Corpuscular Hemoglobin 30.8 PG (27.0-31.0) Mean Corpuscular Hemoglobin Concent 34.6 G/DL (32.0-36.0) Red Cell Distribution Width 11.7 % (11.6-14.8) Platelet Count 198 K/UL (150-450) Mean Platelet Volume 7.6 FL (6.5-10.1) Neutrophils (%) (Auto) 83.5 % (45.0-75.0) H Lymphocytes (%) (Auto) 6.5 % (20.0-45.0) L Monocytes (%) (Auto) 9.5 % (1.0-10.0) Eosinophils (%) (Auto) 0.0 % (0.0-3.0) Basophils (%) (Auto) 0.4 % (0.0-2.0) Sodium Level Pending Potassium Level Pending Chloride Level Pending Carbon Dioxide Level Pending Blood Urea Nitrogen Pending Creatinine Pending Estimat Glomerular Filtration Rate Pending Glucose Level Pending Osmolality 298 mOsm/kg (297-317) Uric Acid 6.1 MG/DL (2.6-7.2) Calcium Level Pending Total Bilirubin Pending Aspartate Amino Transf (AST/SGOT) Pending Alanine Aminotransferase (ALT/SGPT) Pending Alkaline Phosphatase Pending Troponin I 0.000 ng/mL (0.000-0.056) C-Reactive Protein, Quantitative 20.2 mg/dL (0.00-0.90) H Total Protein Pending Albumin Pending Globulin Pending Triglycerides Level 84 MG/DL (30-150) Cholesterol Level 105 MG/DL (< 200) LDL Cholesterol 58 mg/dL (<100) HDL Cholesterol 35 MG/DL (40-60) L Cholesterol/HDL Ratio 3.0 (3.3-4.4) L Thyroid Stimulating Hormone (TSH) 0.178 uiU/mL (0.358-3.740) Free Thyroxine 1.32 NG/DL (0.76-1.46) Free Triiodothyronine 1.4 pg/mL (2.3-4.2) L Cortisol Pending Prothrombin Time 9.7 SEC (9.30-11.50) Prothromb Time International Ratio 0.9 (0.9-1.1) Activated Partial Thromboplast Time 35 SEC (23-33) H D-Dimer 1.52 mg/L FEU (0.00-0.49) H Microbiology Date/Time Source Procedure Growth Status 08/25/17 22:00 Urine,Clean Catch Urine Culture - Preliminary Resulted MARLEEN DUVALL Aug 26, 2017 12:43
[2017-08-26 13:01] LABS: ALANINE AMINOTRANSFERASE 16 U/L (12-78); ALBUMIN 2.9 G/DL (3.4-5.0); ALBUMIN/GLOBULIN RATIO 0.7 (1.0-2.7); ALKALINE PHOSPHATASE 61 U/L (46-116); ANION GAP 6 mmol/L (5-15); ASPARTATE AMINO TRANSFERASE 17 U/L (15-37); BILIRUBIN,TOTAL 0.5 MG/DL (0.2-1.0); BLOOD UREA NITROGEN 28 mg/dL (7-18); CALCIUM 8.7 MG/DL (8.5-10.1); CARBON DIOXIDE 31 MMOL/L (21-32); CHLORIDE 97 MMOL/L (98-107); CREATININE 1.3 MG/DL (0.55-1.30); POTASSIUM 3.4 MMOL/L (3.5-5.1); SODIUM 134 MMOL/L (136-145)
--- NOTE | 2017-08-26 13:43 | Cardiology Report ---
APPROVED REPORT EKG Measurement Heart [id number] Sinus tachycardia with premature atrial complexes Incomplete right bundle branch block T wave abnormality, consider anterior ischemia Abnormal ECG
[2017-08-26] MEDS: Piperacillin/Tazobactam 3.375 GM in D5W 110 ML IVPB SCH ×2 (14:06→21:00)
[2017-08-26] MEDS ORDERED: Potassium Chloride 40 MEQ in Sodium Chloride 500ML 550 ML IVPB ONE (17:00)
[2017-08-26] MEDS ORDERED: Tubing IV Secondary IV ONE (17:39)
[2017-08-26] MEDS ORDERED: NS 275ml ONE (17:39)
[2017-08-26] MEDS: Atorvastatin 20mg tab ORAL SCH (21:00)
--- NOTE | 2017-08-26 23:22 | Consultation ---
History of Present Illness General Date patient seen: Aug 26, 2017 Chief Complaint: Nausea, Vomiting, and Diarrhea Present Illness HPI 76-year-old Chinese female, with hx of anxiety, depression and low po intake who is admitted for gi sxs. Information is obtained from daughter. Per daughter the pt cries and is irritable and anxious. the pt has not been sleeping nor eating well. the pt has impairment of cognition. the pts daughter stated that the pt is difficult to manage. they both agreed to Remeron Allergies: Coded Allergies: No Known Allergies (Unverified , 08/25/17) Medication History Scheduled Amlodipine Besylate* (Amlodipine Besylate*), 5 MG ORAL DAILY, (Reported) Aspirin Ec* (Aspirin Ec*), 81 MG ORAL DAILY, (Reported) Isosorbide Mononitrate (Isosorbide Mononitrate Er), 60 MG PO DAILY, (Reported) Losartan/Hydrochlorothiazide (Losartan-Hctz 100-12.5 Mg Tab), 1 TAB ORAL DAILY, (Reported) Omeprazole (Omeprazole), 40 MG ORAL DAILY, (Reported) Simvastatin (Zocor), 20 MG ORAL BEDTIME, (Reported) Patient History Limited by: medical condition History Provided By: Patient, Medical Record, PMD Healthcare decision maker N Resuscitation status Full Code Advanced Directive on File Past Medical/Surgical History Past Medical/Surgical History: (1) Shortness of breath (2) Nausea and vomiting (3) CAD (coronary artery disease) (4) Chest pain (5) History of hypertension (6) Leucocytosis Review of Systems Psychiatric: Reports: prior hx, anxiety, depressed feelings, emotional problems Physical Exam General Appearance: no apparent distress, alert Neurologic: oriented x 3, responsive, depressed affect Last 24 Hour Vital Signs Date Time Temp Pulse Resp B/P (MAP) Pulse Ox O2 Delivery O2 Flow Rate FiO2 08/26/17 20:00 80 08/26/17 20:00 97.0 79 16 102/61 93 Room Air 97.0 08/26/17 16:59 97 134/70 08/26/17 16:26 98.4 08/26/17 16:00 97 08/26/17 15:41 100.6 102 18 134/70 95 Room Air 100.6 08/26/17 15:15 100.4 08/26/17 12:05 93 08/26/17 12:00 87 08/26/17 12:00 99.7 97 18 125/69 96 Room Air 99.7 08/26/17 12:00 103 08/26/17 11:55 97 08/26/17 10:11 75 16 Room Air 21 08/26/17 08:00 98.2 77 18 103/63 96 Room Air 98.2 08/26/17 08:00 78 08/26/17 04:00 74 08/26/17 04:00 97.0 72 20 110/60 98 Room Air 97.0 08/26/17 01:30 99.0 99.0 08/26/17 00:30 102.0 08/26/17 00:00 102.0 110 20 140/84 95 Room Air 102.0 08/26/17 00:00 118 Intake and Output 08/25/17 08/26/17 19:00 07:00 Intake Total 250 ml 120 ml Balance 250 ml 120 ml Intake Oral 250 ml 120 ml # Voids 1 3 Laboratory Tests Test 08/26/17 07:10 08/26/17 11:00 08/26/17 15:10 White Blood Count 12.4 K/UL (4.8-10.8) H Red Blood Count 3.93 M/UL (4.20-5.40) L Hemoglobin 12.1 G/DL (12.0-16.0) Hematocrit 35.0 % (37.0-47.0) L Mean Corpuscular Volume 89 FL (80-99) Mean Corpuscular Hemoglobin 30.8 PG (27.0-31.0) Mean Corpuscular Hemoglobin Concent 34.6 G/DL (32.0-36.0) Red Cell Distribution Width 11.7 % (11.6-14.8) Platelet Count 198 K/UL (150-450) Mean Platelet Volume 7.6 FL (6.5-10.1) Neutrophils (%) (Auto) 83.5 % (45.0-75.0) H Lymphocytes (%) (Auto) 6.5 % (20.0-45.0) L Monocytes (%) (Auto) 9.5 % (1.0-10.0) Eosinophils (%) (Auto) 0.0 % (0.0-3.0) Basophils (%) (Auto) 0.4 % (0.0-2.0) Sodium Level 134 MMOL/L (136-145) L Potassium Level 3.4 MMOL/L (3.5-5.1) L Chloride Level 97 MMOL/L (98-107) L Carbon Dioxide Level 31 MMOL/L (21-32) Anion Gap 6 mmol/L (5-15) Blood Urea Nitrogen 28 mg/dL (7-18) H Creatinine 1.3 MG/DL (0.55-1.30) Estimat Glomerular Filtration Rate mL/min (>60) Glucose Level 144 MG/DL (74-106) H Osmolality 298 mOsm/kg (297-317) Uric Acid 6.1 MG/DL (2.6-7.2) Calcium Level 8.7 MG/DL (8.5-10.1) Total Bilirubin 0.5 MG/DL (0.2-1.0) Aspartate Amino Transf (AST/SGOT) 17 U/L (15-37) Alanine Aminotransferase (ALT/SGPT) 16 U/L (12-78) Alkaline Phosphatase 61 U/L (46-116) Troponin I 0.000 ng/mL (0.000-0.056) 0.001 ng/mL (0.000-0.056) C-Reactive Protein, Quantitative 20.2 mg/dL (0.00-0.90) H Total Protein 7.0 G/DL (6.4-8.2) Albumin 2.9 G/DL (3.4-5.0) L Globulin 4.1 g/dL Albumin/Globulin Ratio 0.7 (1.0-2.7) L Triglycerides Level 84 MG/DL (30-150) Cholesterol Level 105 MG/DL (< 200) LDL Cholesterol 58 mg/dL (<100) HDL Cholesterol 35 MG/DL (40-60) L Cholesterol/HDL Ratio 3.0 (3.3-4.4) L Thyroid Stimulating Hormone (TSH) 0.178 uiU/mL (0.358-3.740) Free Thyroxine 1.32 NG/DL (0.76-1.46) Free Triiodothyronine 1.4 pg/mL (2.3-4.2) L Cortisol 16.0 UG/DL Prothrombin Time 9.7 SEC (9.30-11.50) Prothromb Time International Ratio 0.9 (0.9-1.1) Activated Partial Thromboplast Time 35 SEC (23-33) H D-Dimer 1.52 mg/L FEU (0.00-0.49) H Height (Feet): 5 Height (Inches): 1.00 Weight (Pounds): 120 Medications Current Medications Medications (Trade) Dose Ordered Sig/Rick Route PRN Reason Start Time Stop Time Status Last Admin Dose Admin Acetaminophen (Tylenol) 650 mg Q4H PRN ORAL FEVER 08/25/17 15:15 09/24/17 15:14 08/26/17 15:15 Albuterol/ Ipratropium (Albuterol/ Ipratropium) 3 ml EVERY 4 HOURS PRN HHN Shortness of Breath 08/25/17 15:15 08/30/17 15:14 Amlodipine Besylate (Norvasc) 2.5 mg DAILY@1700 ORAL 08/26/17 17:00 09/25/17 16:59 08/26/17 16:59 Aspirin (Ecotrin) 81 mg DAILY ORAL 08/26/17 09:00 09/25/17 08:59 08/26/17 08:58 Atorvastatin Calcium (Lipitor) 20 mg BEDTIME ORAL 08/25/17 21:00 09/24/17 20:59 08/26/17 21:00 Diltiazem HCl (Cardizem) 10 mg EVERY HOUR PRN IV heart rate more than 120, 08/25/17 15:15 09/24/17 15:14 Enalaprilat (Vasotec) 2.5 mg EVERY 6 HOURS PRN IV sbp more than 160 08/25/17 15:15 09/24/17 15:14 Heparin Sodium (Porcine) (Heparin 5000 units/ml) 5,000 units EVERY 12 HOURS SUBQ 08/25/17 21:00 09/24/17 20:59 08/26/17 21:03 Losartan Potassium (Cozaar) 50 mg DAILY ORAL 08/27/17 09:00 09/26/17 08:59 Morphine Sulfate (Morphine Sulfate) 2 mg EVERY 4 HOURS PRN IVP severe Pain (Pain Scale 7-10) 08/25/17 15:15 09/01/17 15:14 Nitroglycerin (Ntg) 0.4 mg Every 5 Minutes PRN SL Prn Chest Pain 08/25/17 15:15 09/24/17 15:14 Ondansetron HCl (Zofran) 4 mg Q6H PRN IVP Nausea & Vomiting 08/25/17 15:15 09/24/17 15:14 Piperacillin Sod/ Tazobactam Sod 3.375 gm/Dextrose 110 ml @ 27.5 mls/hr EVERY 8 HOURS IVPB 08/26/17 14:00 08/31/17 13:59 08/26/17 21:00 Polyethylene Glycol (Miralax) 17 gm DAILYPRN PRN ORAL Constipation 08/25/17 15:15 09/24/17 15:14 Temazepam (Restoril) 15 mg HSPRN PRN ORAL Insomnia 08/25/17 15:15 09/01/17 15:14 08/25/17 22:13 Assessment/Plan Assessment/Plan anxiety depression remeron 7.5mg qhs Oscar Barcenas M.D. Aug 26, 2017 23:22
[2017-08-27 04:00] VITALS: BP 116/71
[2017-08-27] MEDS: Piperacillin/Tazobactam 3.375 GM in D5W 110 ML IVPB SCH (05:48)
[2017-08-27 08:00] VITALS: BP 100/61
[2017-08-27] MEDS: Heparin 5000 units/ml inj SUBQ SCH ×2 (08:31→20:57)
[2017-08-27] MEDS: Aspirin EC 81mg tab ORAL SCH (08:37)
[2017-08-27] MEDS ORDERED: Imdur 30mg tab ORAL SCH (09:00)
[2017-08-27] MEDS ORDERED: Losartan 50mg tab ORAL SCH (09:00)
[2017-08-27 11:47] VITALS: BP 90/51
--- NOTE | 2017-08-27 12:08 | Pulmonology Progress Note ---
Assessment/Plan Problems: (1) Chest pain (2) Shortness of breath (3) Nausea and vomiting (4) Leucocytosis (5) Hx of CABG (6) History of hypertension (7) CAD (coronary artery disease) Assessment/Plan all troponin negative echo reviewed Na still low most likely secondary to HCTZ BC positive for GNB continue abx check cultures on Zosyn day 2 symptomatic treatment f/u WBC Subjective ROS Limited/Unobtainable: No Constitutional: Reports: no symptoms HEENT: Repors: no symptoms Allergies: Coded Allergies: No Known Allergies (Unverified , 08/25/17) Objective Last 24 Hour Vital Signs Date Time Temp Pulse Resp B/P (MAP) Pulse Ox O2 Delivery O2 Flow Rate FiO2 08/27/17 11:48 77 08/27/17 11:47 97.3 65 18 90/51 99 Room Air 97.3 08/27/17 11:40 79 08/27/17 11:35 65 08/27/17 08:28 92/58 08/27/17 08:00 83 08/27/17 08:00 97.6 77 18 100/61 97 Room Air 97.6 08/27/17 07:50 77 18 Room Air 21 08/27/17 06:48 99.9 08/27/17 05:49 99.9 08/27/17 04:00 102.2 101 19 116/71 92 Room Air 102.2 08/27/17 04:00 103 08/27/17 00:05 84 08/27/17 00:00 70 08/27/17 00:00 70 08/26/17 23:55 69 08/26/17 23:54 97.3 74 16 113/73 100 Room Air 97.3 08/26/17 20:00 80 08/26/17 20:00 97.0 79 16 102/61 93 Room Air 97.0 08/26/17 19:08 81 18 Room Air 21 08/26/17 16:59 97 134/70 08/26/17 16:00 97 08/26/17 15:41 100.6 102 18 134/70 95 Room Air 100.6 08/26/17 15:15 100.4 Intake and Output 08/26/17 08/27/17 19:00 07:00 Intake Total 755.0 ml 240 ml Output Total 450 ml Balance 305.0 ml 240 ml Intake Oral 360 ml 240 ml IV Total 395.0 ml Output Urine Total 450 ml # Voids 2 Objective General Appearance: WD/WN, no acute distress HEENT: atraumatic Respiratory/Chest: normal breath sounds Abdomen: normal bowel sounds, soft, non tender Extremities: no cyanosis Skin: no ulcers Neurologic/Psychiatric: classification and treatment director II-XII grossly normal, no motor/sensory deficits Microbiology Date/Time Source Procedure Growth Status 08/26/17 00:30 Blood Blood Culture - Preliminary Resulted 08/26/17 00:15 Blood Blood Culture - Preliminary Resulted 08/25/17 22:00 Urine,Clean Catch Urine Culture - Preliminary Gram Negative Bacillus 1 Resulted Laboratory Tests 08/26/17 15:10: Troponin I 0.001 08/27/17 06:25: Troponin I 0.000 Current Medications Medications (Trade) Dose Ordered Sig/Rick Route PRN Reason Start Time Stop Time Status Last Admin Dose Admin Acetaminophen (Tylenol) 650 mg Q4H PRN ORAL FEVER 08/25/17 15:15 09/24/17 15:14 08/27/17 05:49 Albuterol/ Ipratropium (Albuterol/ Ipratropium) 3 ml EVERY 4 HOURS PRN HHN Shortness of Breath 08/25/17 15:15 08/30/17 15:14 Amlodipine Besylate (Norvasc) 2.5 mg DAILY@1700 ORAL 08/26/17 17:00 09/25/17 16:59 08/26/17 16:59 Aspirin (Ecotrin) 81 mg DAILY ORAL 08/26/17 09:00 09/25/17 08:59 08/27/17 08:37 Atorvastatin Calcium (Lipitor) 20 mg BEDTIME ORAL 08/25/17 21:00 09/24/17 20:59 08/26/17 21:00 Diltiazem HCl (Cardizem) 10 mg EVERY HOUR PRN IV heart rate more than 120, 08/25/17 15:15 09/24/17 15:14 Enalaprilat (Vasotec) 2.5 mg EVERY 6 HOURS PRN IV sbp more than 160 08/25/17 15:15 09/24/17 15:14 Heparin Sodium (Porcine) (Heparin 5000 units/ml) 5,000 units EVERY 12 HOURS SUBQ 08/25/17 21:00 09/24/17 20:59 08/27/17 08:31 Losartan Potassium (Cozaar) 50 mg DAILY ORAL 08/27/17 09:00 09/26/17 08:59 Mirtazapine (Remeron) 7.5 mg BEDTIME ORAL 08/27/17 21:00 09/26/17 20:59 Morphine Sulfate (Morphine Sulfate) 2 mg EVERY 4 HOURS PRN IVP severe Pain (Pain Scale 7-10) 08/25/17 15:15 09/01/17 15:14 Nitroglycerin (Ntg) 0.4 mg Every 5 Minutes PRN SL Prn Chest Pain 08/25/17 15:15 09/24/17 15:14 Ondansetron HCl (Zofran) 4 mg Q6H PRN IVP Nausea & Vomiting 08/25/17 15:15 09/24/17 15:14 Piperacillin Sod/ Tazobactam Sod 3.375 gm/Dextrose 110 ml @ 27.5 mls/hr EVERY 8 HOURS IVPB 08/26/17 14:00 08/31/17 13:59 08/27/17 05:48 Polyethylene Glycol (Miralax) 17 gm DAILYPRN PRN ORAL Constipation 08/25/17 15:15 09/24/17 15:14 Temazepam (Restoril) 15 mg HSPRN PRN ORAL Insomnia 08/25/17 15:15 09/01/17 15:14 08/27/17 01:09 Amber Ryan MD Aug 27, 2017 12:07
--- NOTE | 2017-08-27 13:33 | Consultation ---
History of Present Illness General Date patient seen: Aug 27, 2017 Time patient seen: 13:13 Chief Complaint: Nausea, Vomiting, and Diarrhea Present Illness HPI 76 y/o F with hx of HTN, Asthma, CAD s/p CABG, former smoker, Anxiety/MDD, hysterectomy presents to ED on 08/25 with decreased appetite, atypical chest pain. Also patient had reported sensation of hearing noises. Also some episodes of SOB, nausea and vomiting. Denies PND, orthopnea, fever/chills, abd pain Febrile to 102, leukocytosis 12. Bacteremic with GNRs Allergies: Coded Allergies: No Known Allergies (Unverified , 08/25/17) Medication History Scheduled Amlodipine Besylate* (Amlodipine Besylate*), 5 MG ORAL DAILY, (Reported) Aspirin Ec* (Aspirin Ec*), 81 MG ORAL DAILY, (Reported) Isosorbide Mononitrate (Isosorbide Mononitrate Er), 60 MG PO DAILY, (Reported) Losartan/Hydrochlorothiazide (Losartan-Hctz 100-12.5 Mg Tab), 1 TAB ORAL DAILY, (Reported) Omeprazole (Omeprazole), 40 MG ORAL DAILY, (Reported) Simvastatin (Zocor), 20 MG ORAL BEDTIME, (Reported) Patient History Healthcare decision maker N Resuscitation status Full Code Advanced Directive on File Patient History Narrative Pmhx: as above Shx: She quit smoking more than 20 years ago when she had a bypass surgery. No alcoholic beverages. Fhx: non contributory Review of Systems All Other Systems: negative except mentioned in HPI Physical Exam Physical Exam Narrative GENERAL: Shows to be elderly female, in no respiratory distress. NECK: Supple. No jugular venous distention. LUNGS: Clear to auscultation and percussion. CARDIAC: S1 is normal. S2 is normal. There is a systolic ejection murmur. No RV lifts, heaves, or thrills noted. ABDOMEN: Soft and nontender. Positive bowel sounds. EXTREMITIES: There is no edema. NEUROLOGIC: She is awake, alert, and responsive. Last 24 Hour Vital Signs Date Time Temp Pulse Resp B/P (MAP) Pulse Ox O2 Delivery O2 Flow Rate FiO2 08/27/17 11:48 77 08/27/17 11:47 97.3 65 18 90/51 99 Room Air 97.3 08/27/17 11:40 79 4/25/18 11:35 65 08/27/17 08:28 92/58 08/27/17 08:00 83 08/27/17 08:00 97.6 77 18 100/61 97 Room Air 97.6 08/27/17 07:50 77 18 Room Air 21 08/27/17 06:48 99.9 08/27/17 05:49 99.9 08/27/17 04:00 102.2 101 19 116/71 92 Room Air 102.2 08/27/17 04:00 103 08/27/17 00:05 84 08/27/17 00:00 70 08/27/17 00:00 70 08/26/17 23:55 69 08/26/17 23:54 97.3 74 16 113/73 100 Room Air 97.3 08/26/17 20:00 80 08/26/17 20:00 97.0 79 16 102/61 93 Room Air 97.0 08/26/17 19:08 81 18 Room Air 21 08/26/17 16:59 97 134/70 08/26/17 16:00 97 08/26/17 15:41 100.6 102 18 134/70 95 Room Air 100.6 08/26/17 15:15 100.4 Intake and Output 08/26/17 08/27/17 19:00 07:00 Intake Total 755.0 ml 240 ml Output Total 450 ml Balance 305.0 ml 240 ml Intake Oral 360 ml 240 ml IV Total 395.0 ml Output Urine Total 450 ml # Voids 2 Laboratory Tests Test 08/26/17 15:10 08/27/17 06:25 Troponin I 0.001 ng/mL (0.000-0.056) 0.000 ng/mL (0.000-0.056) Height (Feet): 5 Height (Inches): 1.00 Weight (Pounds): 120 Medications Current Medications Medications (Trade) Dose Ordered Sig/Rick Route PRN Reason Start Time Stop Time Status Last Admin Dose Admin Acetaminophen (Tylenol) 650 mg Q4H PRN ORAL FEVER 08/25/17 15:15 09/24/17 15:14 08/27/17 05:49 Albuterol/ Ipratropium (Albuterol/ Ipratropium) 3 ml EVERY 4 HOURS PRN HHN Shortness of Breath 08/25/17 15:15 08/30/17 15:14 Amlodipine Besylate (Norvasc) 2.5 mg DAILY@1700 ORAL 08/26/17 17:00 09/25/17 16:59 08/26/17 16:59 Aspirin (Ecotrin) 81 mg DAILY ORAL 08/26/17 09:00 09/25/17 08:59 08/27/17 08:37 Atorvastatin Calcium (Lipitor) 20 mg BEDTIME ORAL 08/25/17 21:00 09/24/17 20:59 08/26/17 21:00 Diltiazem HCl (Cardizem) 10 mg EVERY HOUR PRN IV heart rate more than 120, 08/25/17 15:15 09/24/17 15:14 Enalaprilat (Vasotec) 2.5 mg EVERY 6 HOURS PRN IV sbp more than 160 08/25/17 15:15 09/24/17 15:14 Heparin Sodium (Porcine) (Heparin 5000 units/ml) 5,000 units EVERY 12 HOURS SUBQ 08/25/17 21:00 09/24/17 20:59 08/27/17 08:31 Losartan Potassium (Cozaar) 50 mg DAILY ORAL 08/27/17 09:00 09/26/17 08:59 Mirtazapine (Remeron) 7.5 mg BEDTIME ORAL 08/27/17 21:00 09/26/17 20:59 Morphine Sulfate (Morphine Sulfate) 2 mg EVERY 4 HOURS PRN IVP severe Pain (Pain Scale 7-10) 08/25/17 15:15 09/01/17 15:14 Nitroglycerin (Ntg) 0.4 mg Every 5 Minutes PRN SL Prn Chest Pain 08/25/17 15:15 09/24/17 15:14 Ondansetron HCl (Zofran) 4 mg Q6H PRN IVP Nausea & Vomiting 08/25/17 15:15 09/24/17 15:14 Piperacillin Sod/ Tazobactam Sod 3.375 gm/Dextrose 110 ml @ 27.5 mls/hr EVERY 8 HOURS IVPB 08/26/17 14:00 08/31/17 13:59 08/27/17 05:48 Polyethylene Glycol (Miralax) 17 gm DAILYPRN PRN ORAL Constipation 08/25/17 15:15 09/24/17 15:14 Temazepam (Restoril) 15 mg HSPRN PRN ORAL Insomnia 08/25/17 15:15 09/01/17 15:14 08/27/17 01:09 Assessment/Plan Assessment/Plan Abx: Zosyn 08/26- Assessment: Sepsis 2ry to UTI c/w bacteremia- ?pyelo given n/v -u/a wbc 10-15, nit +, leuk +3; ucx >100K GNRs -Bcx 08/26 08/06 GNRs -CXR: calcifications in the right lung, likely on the basis of old granulomatous disease. Possible small left pleural effusion. No acute process otherwise Fever/leukocytosis STELLA Dizziness/tinnitus -MRI brain: Chronic and age-related changes. Old left basal ganglia lacunar infarct. Negative for acute intracranial bleed, mass effect, or infarct HTN Asthma CAD s/p CABG former smoker Anxiety/MDD hysterectomy Plan: -Switch Zosyn #2 to Meropenem pending ID GNR and BCx -Renal US -Bcx x2 -if persistent bacteremia will get CT abd/p -f/u cx -Monitor CBC/BMP, temperatures -aspiration precautions Thank you for this consultation. Will continue to follow along with you. Discussed with Sis Ramírez M.D. Aug 27, 2017 13:33
--- NOTE | 2017-08-27 13:49 | Physician Query ---
--------- THIS DOCUMENT IS A PERMANENT PART OF THE MEDICAL RECORD --------- PLEASE COMPLETE THE DOCUMENT BEFORE SIGNING Dear DONNA Otoole Date 08/27/17 Director Network Development/CDS' Name Sonal Srivastava Director Network Development/CDS Phone#: [phone] Exercise your independent professional judgment when responding to query. Questions asked do not imply particular answer is desired or expected. We greatly appreciate your clarification on this issue. Clinical Documentation States: H & P (08/25/17): "Chest pain" Cardiology Consultation Note; Dr. Ray (08/25/17) "Atypical chest pain" "cardiac enzymes are negative. EKG looks negative" Clinical Findings Show: EKG = See note above Troponin = 0.017, 0.000, 0.001 O2% = 95-100% on room air Please document the suspected etiology of Chest Pain: a.Type: []Cardiac []Non-cardiac []Unspecified b.Etiology - cardiac [] Aortic dissection []Mitral valve prolapsed [] Acute myocardial infarction []Spasm of coronary arteries [] Coronary Artery Disease []Pericarditis c.Etiology - non-cardiac [] Anxiety []Pleurisy [] Cancer []Pneumonia, type [] Costochondritis []Pneumothorax [] GERD/Esophagitis []Pulmonary embolism [] Unable to determine []Other: Condition Present on Admission: [] Yes [] No []Clinically Undeterminable Please also document in your Progress Notes and/or Discharge Summary and indicate if the condition was present on admission. Dr. DONNA KINGSLEY Date/Time MTDD
[2017-08-27] MEDS ORDERED: Nitroglycerin Subl 0.4mg tab SL PRN (14:45)
[2017-08-27 15:00] VITALS: BP 116/61
[2017-08-27] MEDS ORDERED: Morphine Sulfate 4mg/ml Inj IVP PRN (15:00)
[2017-08-27] MEDS ORDERED: Meropenem 1 GM in NS 55 ML IVPB SCH (15:00)
[2017-08-27] MEDS ORDERED: Albuterol/Ipratropium 3ml neb HHN PRN (15:00)
[2017-08-27] MEDS ORDERED: Miralax 17gm pkt ORAL PRN (15:15)
[2017-08-27 16:00] VITALS: BP 113/60
[2017-08-27] MEDS: Meropenem 1 GM in NS 55 ML IVPB SCH (16:22)
[2017-08-27 20:00] VITALS: BP 107/68
[2017-08-27] MEDS: Atorvastatin 20mg tab ORAL SCH (20:56)
[2017-08-27] MEDS ORDERED: Pneumococcal Vaccine 25mcg/0.5ml IM ONE (22:15)
[2017-08-28] VITALS: BP 149/88
[2017-08-28] MEDS: Meropenem 1 GM in NS 55 ML IVPB SCH ×2 (02:34→14:59)
[2017-08-28 04:00] VITALS: BP 158/103
[2017-08-28 07:26] LABS: BASOPHILS % (AUTO) 0.8 % (0.0-2.0); EOSINOPHILS % (AUTO) 0.3 % (0.0-3.0); HEMATOCRIT 37.9 % (37.0-47.0); HEMOGLOBIN 13.2 G/DL (12.0-16.0); LYMPHOCYTES % (AUTO) 5.8 % (20.0-45.0); MEAN CORPUSCULAR VOLUME 88 FL (80-99); MONOCYTES % (AUTO) 8.9 % (1.0-10.0); NEUTROPHILS % (AUTO) 84.3 % (45.0-75.0); PLATELET COUNT 239 K/UL (150-450); RED BLOOD COUNT 4.28 M/UL (4.20-5.40); RED CELL DISTRIBUTION WIDTH 11.5 % (11.6-14.8); WHITE BLOOD COUNT 11.8 K/UL (4.8-10.8)
[2017-08-28 07:38] LABS: ALANINE AMINOTRANSFERASE 42 U/L (12-78); ALBUMIN 2.7 G/DL (3.4-5.0); ALBUMIN/GLOBULIN RATIO 0.5 (1.0-2.7); ALKALINE PHOSPHATASE 110 U/L (46-116); ANION GAP 10 mmol/L (5-15); ASPARTATE AMINO TRANSFERASE 32 U/L (15-37); BILIRUBIN,TOTAL 0.5 MG/DL (0.2-1.0); BLOOD UREA NITROGEN 17 mg/dL (7-18); CALCIUM 8.9 MG/DL (8.5-10.1); CARBON DIOXIDE 28 MMOL/L (21-32); CHLORIDE 98 MMOL/L (98-107); PHOSPHORUS 2.1 MG/DL (2.5-4.9); POTASSIUM 3.6 MMOL/L (3.5-5.1); SODIUM 136 MMOL/L (136-145)
[2017-08-28 08:00] VITALS: BP 110/62
[2017-08-28] MEDS: Aspirin EC 81mg tab ORAL SCH (08:45)
[2017-08-28] MEDS: Heparin 5000 units/ml inj SUBQ SCH ×2 (08:48→20:40)
[2017-08-28] MEDS: Losartan 50mg tab ORAL SCH (08:48)
--- NOTE | 2017-08-28 09:17 | Diagnostic Imaging Report ---
Indication: Abnormal renal function tests, right flank pain Technique: Grayscale and duplex images of the kidneys, retroperitoneum, and bladder were obtained. Comparison: none Findings: Right kidney measures 11.4 cm in length. Left kidney measures 11 cm in length. Both kidneys demonstrate normal echogenicity. No hydronephrosis. There are small renal cysts bilaterally.. Normal inferior vena cava. Bladder is nondistended. Impression: Essentially unremarkable exam Incidental finding of bilateral renal cysts.
[2017-08-28] MEDS ORDERED: Pneumococcal Vaccine 25mcg/0.5ml IM ONE (09:30)
[2017-08-28 12:00] VITALS: BP 116/72
--- NOTE | 2017-08-28 13:22 | Pulmonology Progress Note ---
Assessment/Plan Problems: (1) Bacteremia (2) Sepsis (3) Chest pain (4) Shortness of breath (5) Nausea and vomiting (6) Leucocytosis (7) Hx of CABG (8) History of hypertension (9) CAD (coronary artery disease) Assessment/Plan echo reviewed Na still low most likely secondary to HCTZ BC positive for GNB continue abx check cultures on Zosyn day 2 symptomatic treatment f/u WBC urine has Ecoli dc when ok with ID application support consultant Subjective ROS Limited/Unobtainable: No Constitutional: Reports: no symptoms HEENT: Repors: no symptoms Respiratory: Reports: no symptoms Allergies: Coded Allergies: No Known Allergies (Unverified , 08/25/17) Objective Last 24 Hour Vital Signs Date Time Temp Pulse Resp B/P (MAP) Pulse Ox O2 Delivery O2 Flow Rate FiO2 08/28/17 12:00 99.9 75 19 116/72 98 Room Air 99.9 08/28/17 08:48 110/62 08/28/17 08:14 96 20 Room Air 21 08/28/17 08:00 98.2 91 18 110/62 95 Room Air 98.2 08/28/17 04:00 97.7 95 18 158/103 98 Room Air 97.7 08/28/17 00:00 97.6 76 17 149/88 99 Room Air 97.6 08/27/17 21:01 98.1 08/27/17 20:19 86 18 Room Air 21 08/27/17 20:02 101.7 08/27/17 20:00 101.7 85 18 107/68 93 Room Air 101.7 08/27/17 17:00 82 114/68 08/27/17 16:00 97.6 71 18 113/60 99 Room Air 97.6 08/27/17 15:00 98.6 71 18 116/61 99 Room Air 98.6 Intake and Output 08/27/17 08/28/17 19:00 07:00 Intake Total 295 ml 590 ml Balance 295 ml 590 ml Intake Oral 240 ml 480 ml IV Total 55 ml 110 ml # Voids 4 5 Objective General Appearance: WD/WN, no acute distress HEENT: atraumatic Respiratory/Chest: normal breath sounds Abdomen: normal bowel sounds, soft, non tender Extremities: no cyanosis Skin: no ulcers Neurologic/Psychiatric: guest attendant II-XII grossly normal, no motor/sensory deficits Microbiology Date/Time Source Procedure Growth Status 08/27/17 15:10 Blood Blood Culture - Preliminary Resulted 08/26/17 00:30 Blood Blood Culture - Preliminary Gram Negative Bacillus 1 Resulted 08/26/17 00:15 Blood Blood Culture - Preliminary Gram Negative Bacillus 1 Resulted 08/25/17 22:00 Urine,Clean Catch Urine Culture - Final Escherichia Coli Complete Laboratory Tests 08/28/17 06:45: White Blood Count 11.8H, Red Blood Count 4.28, Hemoglobin 13.2, Hematocrit 37.9 , Mean Corpuscular Volume 88, Mean Corpuscular Hemoglobin 30.9, Mean Corpuscular Hemoglobin Concent 34.9, Red Cell Distribution Width 11.5L, Platelet Count 239, Mean Platelet Volume 7.4, Neutrophils (%) (Auto) 84.3H, Lymphocytes (%) (Auto) 5.8L, Monocytes (%) (Auto) 8.9, Eosinophils (%) (Auto) 0.3, Basophils (%) (Auto) 0.8, Erythrocyte Sedimentation Rate 90H, Sodium Level 136, Potassium Level 3.6, Chloride Level 98, Carbon Dioxide Level 28, Anion Gap 10, Blood Urea Nitrogen 17, Creatinine 1.0, Estimat Glomerular Filtration Rate , Glucose Level 135H, Calcium Level 8.9, Phosphorus Level 2.1L, Magnesium Level 2.0, Total Bilirubin 0.5, Aspartate Amino Transf (AST/SGOT) 32, Alanine Aminotransferase (ALT/SGPT) 42, Alkaline Phosphatase 110, Total Protein 7.9, Albumin 2.7L, Globulin 5.2, Albumin/Globulin Ratio 0.5L Current Medications Medications (Trade) Dose Ordered Sig/Rick Route PRN Reason Start Time Stop Time Status Last Admin Dose Admin Acetaminophen (Tylenol) 650 mg Q4H PRN ORAL T>100.5 08/27/17 15:15 09/24/17 15:14 08/27/17 20:02 Albuterol/ Ipratropium (Albuterol/ Ipratropium) 3 ml Q4H PRN HHN Shortness of Breath 08/27/17 15:00 09/01/17 14:59 Amlodipine Besylate (Norvasc) 2.5 mg DAILY@1700 ORAL 08/27/17 17:00 09/25/17 16:59 Aspirin (Ecotrin) 81 mg DAILY ORAL 4/26/18 09:00 09/25/17 08:59 08/28/17 08:45 Atorvastatin Calcium (Lipitor) 20 mg BEDTIME ORAL 08/27/17 21:00 09/24/17 20:59 08/27/17 20:56 Heparin Sodium (Porcine) (Heparin 5000 units/ml) 5,000 units EVERY 12 HOURS SUBQ 08/27/17 21:00 09/24/17 20:59 08/28/17 08:48 Losartan Potassium (Cozaar) 50 mg DAILY ORAL 08/28/17 09:00 09/26/17 08:59 Meropenem 1 gm/ Sodium Chloride 55 ml @ 110 mls/hr Q12H IVPB 08/27/17 15:00 09/01/17 23:59 08/28/17 02:34 Mirtazapine (Remeron) 7.5 mg BEDTIME ORAL 08/27/17 21:00 09/26/17 20:59 08/27/17 20:56 Morphine Sulfate (Morphine Sulfate) 2 mg Q4H PRN IVP Severe Pain (Pain Scale 7-10) 08/27/17 15:00 09/03/17 14:59 08/28/17 11:49 Nitroglycerin (Ntg) 0.4 mg Every 5 Minutes PRN SL Prn Chest Pain 08/27/17 14:45 09/24/17 15:14 Ondansetron HCl (Zofran) 4 mg Q6H PRN IVP Nausea & Vomiting 08/27/17 15:15 09/24/17 15:14 Polyethylene Glycol (Miralax) 17 gm DAILYPRN PRN ORAL Constipation 08/27/17 15:15 09/24/17 15:14 Temazepam (Restoril) 15 mg HSPRN PRN ORAL Insomnia 08/27/17 21:00 09/01/17 20:59 08/27/17 21:05 Amber Ryan MD Aug 28, 2017 13:22
--- NOTE | 2017-08-28 14:42 | General Progress Note ---
Assessment/Plan Assessment/Plan anxiety depression remeron 7.5mg qhs provided ro/st Subjective Date patient seen: Aug 27, 2017 Neurologic/Psychiatric: Reports: anxiety, depressed, emotional problems Allergies: Coded Allergies: No Known Allergies (Unverified , 08/25/17) Subjective the pt is doing better still depressed Objective Last 24 Hour Vital Signs Date Time Temp Pulse Resp B/P (MAP) Pulse Ox O2 Delivery O2 Flow Rate FiO2 08/28/17 12:00 99.9 75 19 116/72 98 Room Air 99.9 08/28/17 08:48 110/62 08/28/17 08:14 96 20 Room Air 21 08/28/17 08:00 98.2 91 18 110/62 95 Room Air 98.2 08/28/17 04:00 97.7 95 18 158/103 98 Room Air 97.7 08/28/17 00:00 97.6 76 17 149/88 99 Room Air 97.6 08/27/17 21:01 98.1 08/27/17 20:19 86 18 Room Air 21 08/27/17 20:02 101.7 08/27/17 20:00 101.7 85 18 107/68 93 Room Air 101.7 08/27/17 17:00 82 114/68 08/27/17 16:00 97.6 71 18 113/60 99 Room Air 97.6 08/27/17 15:00 98.6 71 18 116/61 99 Room Air 98.6 Intake and Output 08/27/17 08/28/17 19:00 07:00 Intake Total 295 ml 590 ml Balance 295 ml 590 ml Intake Oral 240 ml 480 ml IV Total 55 ml 110 ml # Voids 4 5 Laboratory Tests 08/28/17 06:45: White Blood Count 11.8H, Red Blood Count 4.28, Hemoglobin 13.2, Hematocrit 37.9 , Mean Corpuscular Volume 88, Mean Corpuscular Hemoglobin 30.9, Mean Corpuscular Hemoglobin Concent 34.9, Red Cell Distribution Width 11.5L, Platelet Count 239, Mean Platelet Volume 7.4, Neutrophils (%) (Auto) 84.3H, Lymphocytes (%) (Auto) 5.8L, Monocytes (%) (Auto) 8.9, Eosinophils (%) (Auto) 0.3, Basophils (%) (Auto) 0.8, Erythrocyte Sedimentation Rate 90H, Sodium Level 136, Potassium Level 3.6, Chloride Level 98, Carbon Dioxide Level 28, Anion Gap 10, Blood Urea Nitrogen 17, Creatinine 1.0, Estimat Glomerular Filtration Rate , Glucose Level 135H, Calcium Level 8.9, Phosphorus Level 2.1L, Magnesium Level 2.0, Total Bilirubin 0.5, Aspartate Amino Transf (AST/SGOT) 32, Alanine Aminotransferase (ALT/SGPT) 42, Alkaline Phosphatase 110, Total Protein 7.9, Albumin 2.7L, Globulin 5.2, Albumin/Globulin Ratio 0.5L Height (Feet): 5 Height (Inches): 1.00 Weight (Pounds): 120 General Appearance: WD/WN, no apparent distress, alert Neurologic: alert, oriented x 3, responsive, depressed affect Oscar Barcenas M.D. Aug 28, 2017 14:42
--- NOTE | 2017-08-28 14:45 | General Progress Note ---
Assessment/Plan Assessment/Plan anxiety depression remeron 7.5mg qhs provided ro/st d/w daughter Subjective Date patient seen: Aug 28, 2017 Neurologic/Psychiatric: Reports: anxiety, depressed, emotional problems Allergies: Coded Allergies: No Known Allergies (Unverified , 08/25/17) Subjective the pt is more tearful Objective Last 24 Hour Vital Signs Date Time Temp Pulse Resp B/P (MAP) Pulse Ox O2 Delivery O2 Flow Rate FiO2 08/28/17 12:00 99.9 75 19 116/72 98 Room Air 99.9 08/28/17 08:48 110/62 08/28/17 08:14 96 20 Room Air 21 08/28/17 08:00 98.2 91 18 110/62 95 Room Air 98.2 08/28/17 04:00 97.7 95 18 158/103 98 Room Air 97.7 08/28/17 00:00 97.6 76 17 149/88 99 Room Air 97.6 08/27/17 21:01 98.1 08/27/17 20:19 86 18 Room Air 21 08/27/17 20:02 101.7 08/27/17 20:00 101.7 85 18 107/68 93 Room Air 101.7 08/27/17 17:00 82 114/68 08/27/17 16:00 97.6 71 18 113/60 99 Room Air 97.6 08/27/17 15:00 98.6 71 18 116/61 99 Room Air 98.6 Intake and Output 08/27/17 08/28/17 19:00 07:00 Intake Total 295 ml 590 ml Balance 295 ml 590 ml Intake Oral 240 ml 480 ml IV Total 55 ml 110 ml # Voids 4 5 Laboratory Tests 08/28/17 06:45: White Blood Count 11.8H, Red Blood Count 4.28, Hemoglobin 13.2, Hematocrit 37.9 , Mean Corpuscular Volume 88, Mean Corpuscular Hemoglobin 30.9, Mean Corpuscular Hemoglobin Concent 34.9, Red Cell Distribution Width 11.5L, Platelet Count 239, Mean Platelet Volume 7.4, Neutrophils (%) (Auto) 84.3H, Lymphocytes (%) (Auto) 5.8L, Monocytes (%) (Auto) 8.9, Eosinophils (%) (Auto) 0.3, Basophils (%) (Auto) 0.8, Erythrocyte Sedimentation Rate 90H, Sodium Level 136, Potassium Level 3.6, Chloride Level 98, Carbon Dioxide Level 28, Anion Gap 10, Blood Urea Nitrogen 17, Creatinine 1.0, Estimat Glomerular Filtration Rate , Glucose Level 135H, Calcium Level 8.9, Phosphorus Level 2.1L, Magnesium Level 2.0, Total Bilirubin 0.5, Aspartate Amino Transf (AST/SGOT) 32, Alanine Aminotransferase (ALT/SGPT) 42, Alkaline Phosphatase 110, Total Protein 7.9, Albumin 2.7L, Globulin 5.2, Albumin/Globulin Ratio 0.5L Height (Feet): 5 Height (Inches): 1.00 Weight (Pounds): 120 General Appearance: WD/WN, no apparent distress, alert Neurologic: oriented x 3, depressed affect Oscar Barcenas M.D. Aug 28, 2017 14:45
[2017-08-28 16:00] VITALS: BP 99/73
--- NOTE | 2017-08-28 16:20 | Infectious Diseases Prog Note ---
Assessment/Plan Assessment/Plan Assessment: Sepsis 2ry to UTI c/w bacteremia- ?pyelo given n/v -u/a wbc 10-15, nit +, leuk +3; ucx >100K E.coli (tapia S) -Bcx 08/26 3/ GNRs; 08/27 05/08 GNRs -CXR: calcifications in the right lung, likely on the basis of old granulomatous disease. Possible small left pleural effusion. No acute process otherwise -Renal US: Essentially unremarkable exam. Incidental finding of bilateral renal cysts. Fever/leukocytosis, improving STELLA, improving Dizziness/tinnitus -MRI brain: Chronic and age-related changes. Old left basal ganglia lacunar infarct. Negative for acute intracranial bleed, mass effect, or infarct HTN Asthma CAD s/p CABG former smoker Anxiety/MDD hysterectomy Plan: -Continue Meropenem abx d#3 pending ID GNR BCx -08/27 SP Zosyn #2 -Bcx x2 - CT abd/p wo -f/u cx -Monitor CBC/BMP, temperatures -aspiration precautions Thank you for this consultation. Will continue to follow along with you. Discussed with RN. Subjective Allergies: Coded Allergies: No Known Allergies (Unverified , 08/25/17) Subjective afebrile in ~24hrs leukocytosis improving repeat Bcx + GNR Objective Vital Signs Last 24 Hour Vital Signs Date Time Temp Pulse Resp B/P (MAP) Pulse Ox O2 Delivery O2 Flow Rate FiO2 08/28/17 12:00 99.9 75 19 116/72 98 Room Air 99.9 08/28/17 08:48 110/62 08/28/17 08:14 96 20 Room Air 21 08/28/17 08:00 98.2 91 18 110/62 95 Room Air 98.2 08/28/17 04:00 97.7 95 18 158/103 98 Room Air 97.7 08/28/17 00:00 97.6 76 17 149/88 99 Room Air 97.6 08/27/17 21:01 98.1 08/27/17 20:19 86 18 Room Air 21 08/27/17 20:02 101.7 08/27/17 20:00 101.7 85 18 107/68 93 Room Air 101.7 08/27/17 17:00 82 114/68 Height (Feet): 5 Height (Inches): 1.00 Weight (Pounds): 120 Objective GENERAL: Shows to be elderly female, in no respiratory distress. NECK: Supple. No jugular venous distention. LUNGS: Clear to auscultation and percussion. CARDIAC: S1 is normal. S2 is normal. There is a systolic ejection murmur. No RV lifts, heaves, or thrills noted. ABDOMEN: Soft and nontender. Positive bowel sounds. EXTREMITIES: There is no edema. NEUROLOGIC: She is awake, alert, and responsive. Microbiology Date/Time Source Procedure Growth Status 08/27/17 15:10 Blood Blood Culture - Preliminary Resulted 08/26/17 00:30 Blood Blood Culture - Preliminary Gram Negative Bacillus 1 Resulted 08/26/17 00:15 Blood Blood Culture - Preliminary Gram Negative Bacillus 1 Resulted 08/25/17 22:00 Urine,Clean Catch Urine Culture - Final Escherichia Coli Complete Laboratory Tests Test 08/28/17 06:45 White Blood Count 11.8 K/UL (4.8-10.8) H Red Blood Count 4.28 M/UL (4.20-5.40) Hemoglobin 13.2 G/DL (12.0-16.0) Hematocrit 37.9 % (37.0-47.0) Mean Corpuscular Volume 88 FL (80-99) Mean Corpuscular Hemoglobin 30.9 PG (27.0-31.0) Mean Corpuscular Hemoglobin Concent 34.9 G/DL (32.0-36.0) Red Cell Distribution Width 11.5 % (11.6-14.8) L Platelet Count 239 K/UL (150-450) Mean Platelet Volume 7.4 FL (6.5-10.1) Neutrophils (%) (Auto) 84.3 % (45.0-75.0) H Lymphocytes (%) (Auto) 5.8 % (20.0-45.0) L Monocytes (%) (Auto) 8.9 % (1.0-10.0) Eosinophils (%) (Auto) 0.3 % (0.0-3.0) Basophils (%) (Auto) 0.8 % (0.0-2.0) Erythrocyte Sedimentation Rate 90 MM/HR (0-30) H Sodium Level 136 MMOL/L (136-145) Potassium Level 3.6 MMOL/L (3.5-5.1) Chloride Level 98 MMOL/L (98-107) Carbon Dioxide Level 28 MMOL/L (21-32) Anion Gap 10 mmol/L (5-15) Blood Urea Nitrogen 17 mg/dL (7-18) Creatinine 1.0 MG/DL (0.55-1.30) Estimat Glomerular Filtration Rate mL/min (>60) Glucose Level 135 MG/DL (74-106) H Calcium Level 8.9 MG/DL (8.5-10.1) Phosphorus Level 2.1 MG/DL (2.5-4.9) L Magnesium Level 2.0 MG/DL (1.8-2.4) Total Bilirubin 0.5 MG/DL (0.2-1.0) Aspartate Amino Transf (AST/SGOT) 32 U/L (15-37) Alanine Aminotransferase (ALT/SGPT) 42 U/L (12-78) Alkaline Phosphatase 110 U/L (46-116) Total Protein 7.9 G/DL (6.4-8.2) Albumin 2.7 G/DL (3.4-5.0) L Globulin 5.2 g/dL Albumin/Globulin Ratio 0.5 (1.0-2.7) L Current Medications Medications (Trade) Dose Ordered Sig/Rick Route PRN Reason Start Time Stop Time Status Last Admin Dose Admin Acetaminophen (Tylenol) 650 mg Q4H PRN ORAL T>100.5 08/27/17 15:15 09/24/17 15:14 08/27/17 20:02 Albuterol/ Ipratropium (Albuterol/ Ipratropium) 3 ml Q4H PRN HHN Shortness of Breath 08/27/17 15:00 09/01/17 14:59 Amlodipine Besylate (Norvasc) 2.5 mg DAILY@1700 ORAL 08/27/17 17:00 09/25/17 16:59 Aspirin (Ecotrin) 81 mg DAILY ORAL 08/28/17 09:00 09/25/17 08:59 08/28/17 08:45 Atorvastatin Calcium (Lipitor) 20 mg BEDTIME ORAL 08/27/17 21:00 09/24/17 20:59 08/27/17 20:56 Heparin Sodium (Porcine) (Heparin 5000 units/ml) 5,000 units EVERY 12 HOURS SUBQ 08/27/17 21:00 09/24/17 20:59 08/28/17 08:48 Losartan Potassium (Cozaar) 50 mg DAILY ORAL 08/28/17 09:00 09/26/17 08:59 Meropenem 1 gm/ Sodium Chloride 55 ml @ 110 mls/hr Q12H IVPB 08/27/17 15:00 09/01/17 23:59 08/28/17 14:59 Mirtazapine (Remeron) 7.5 mg BEDTIME ORAL 08/27/17 21:00 09/26/17 20:59 08/27/17 20:56 Morphine Sulfate (Morphine Sulfate) 2 mg Q4H PRN IVP Severe Pain (Pain Scale 7-10) 08/27/17 15:00 09/03/17 14:59 08/28/17 11:49 Nitroglycerin (Ntg) 0.4 mg Every 5 Minutes PRN SL Prn Chest Pain 08/27/17 14:45 09/24/17 15:14 Ondansetron HCl (Zofran) 4 mg Q6H PRN IVP Nausea & Vomiting 08/27/17 15:15 09/24/17 15:14 Polyethylene Glycol (Miralax) 17 gm DAILYPRN PRN ORAL Constipation 08/27/17 15:15 09/24/17 15:14 Temazepam (Restoril) 15 mg HSPRN PRN ORAL Insomnia 08/27/17 21:00 09/01/17 20:59 08/27/17 21:05 Sis Carty M.D. Aug 28, 2017 16:20
--- NOTE | 2017-08-28 19:14 | Cardiology Progress Note ---
Assessment/Plan Assessment/Plan 1. Atypical chest pain. 2. Head noises. 3. Coronary artery disease, status post coronary artery bypass grafting. 4. History of asthma. 5. Hypertension. trop neg tele neg bp at times still lwo Subjective Subjective sleepign looks comfortabel Objective Last 24 Hour Vital Signs Date Time Temp Pulse Resp B/P (MAP) Pulse Ox O2 Delivery O2 Flow Rate FiO2 08/28/17 16:48 84 99/73 08/28/17 16:00 98.8 84 20 99/73 98 Room Air 98.8 08/28/17 12:00 99.9 75 19 116/72 98 Room Air 99.9 08/28/17 08:48 110/62 08/28/17 08:14 96 20 Room Air 21 08/28/17 08:00 98.2 91 18 110/62 95 Room Air 98.2 08/28/17 04:00 97.7 95 18 158/103 98 Room Air 97.7 08/28/17 00:00 97.6 76 17 149/88 99 Room Air 97.6 08/27/17 21:01 98.1 08/27/17 20:19 86 18 Room Air 21 08/27/17 20:02 101.7 08/27/17 20:00 101.7 85 18 107/68 93 Room Air 101.7 General Appearance: no apparent distress Intake and Output 08/27/17 08/28/17 19:00 07:00 Intake Total 295 ml 590 ml Balance 295 ml 590 ml Intake Oral 240 ml 480 ml IV Total 55 ml 110 ml # Voids 4 5 Laboratory Tests Test 08/28/17 06:45 White Blood Count 11.8 K/UL (4.8-10.8) H Red Blood Count 4.28 M/UL (4.20-5.40) Hemoglobin 13.2 G/DL (12.0-16.0) Hematocrit 37.9 % (37.0-47.0) Mean Corpuscular Volume 88 FL (80-99) Mean Corpuscular Hemoglobin 30.9 PG (27.0-31.0) Mean Corpuscular Hemoglobin Concent 34.9 G/DL (32.0-36.0) Red Cell Distribution Width 11.5 % (11.6-14.8) L Platelet Count 239 K/UL (150-450) Mean Platelet Volume 7.4 FL (6.5-10.1) Neutrophils (%) (Auto) 84.3 % (45.0-75.0) H Lymphocytes (%) (Auto) 5.8 % (20.0-45.0) L Monocytes (%) (Auto) 8.9 % (1.0-10.0) Eosinophils (%) (Auto) 0.3 % (0.0-3.0) Basophils (%) (Auto) 0.8 % (0.0-2.0) Erythrocyte Sedimentation Rate 90 MM/HR (0-30) H Sodium Level 136 MMOL/L (136-145) Potassium Level 3.6 MMOL/L (3.5-5.1) Chloride Level 98 MMOL/L (98-107) Carbon Dioxide Level 28 MMOL/L (21-32) Anion Gap 10 mmol/L (5-15) Blood Urea Nitrogen 17 mg/dL (7-18) Creatinine 1.0 MG/DL (0.55-1.30) Estimat Glomerular Filtration Rate mL/min (>60) Glucose Level 135 MG/DL (74-106) H Calcium Level 8.9 MG/DL (8.5-10.1) Phosphorus Level 2.1 MG/DL (2.5-4.9) L Magnesium Level 2.0 MG/DL (1.8-2.4) Total Bilirubin 0.5 MG/DL (0.2-1.0) Aspartate Amino Transf (AST/SGOT) 32 U/L (15-37) Alanine Aminotransferase (ALT/SGPT) 42 U/L (12-78) Alkaline Phosphatase 110 U/L (46-116) Total Protein 7.9 G/DL (6.4-8.2) Albumin 2.7 G/DL (3.4-5.0) L Globulin 5.2 g/dL Albumin/Globulin Ratio 0.5 (1.0-2.7) L Microbiology Date/Time Source Procedure Growth Status 08/27/17 15:10 Blood Blood Culture - Preliminary Resulted 08/26/17 00:30 Blood Blood Culture - Preliminary Gram Negative Bacillus 1 Resulted 08/26/17 00:15 Blood Blood Culture - Preliminary Gram Negative Bacillus 1 Resulted 08/25/17 22:00 Urine,Clean Catch Urine Culture - Final Escherichia Coli Complete MARLEEN DUVALL Aug 28, 2017 19:14
[2017-08-28 20:24] VITALS: BP 128/70
[2017-08-28] MEDS: Atorvastatin 20mg tab ORAL SCH (20:35)
[2017-08-29 00:44] VITALS: BP 124/63
[2017-08-29] MEDS: Meropenem 1 GM in NS 55 ML IVPB SCH ×2 (02:01→17:12)
[2017-08-29 04:08] VITALS: BP 121/68
[2017-08-29 08:00] VITALS: BP 140/81
[2017-08-29 08:59] LABS: BASOPHILS % (AUTO) 2.2 % (0.0-2.0); EOSINOPHILS % (AUTO) 1.1 % (0.0-3.0); HEMATOCRIT 36.8 % (37.0-47.0); HEMOGLOBIN 12.4 G/DL (12.0-16.0); MEAN CORPUSCULAR VOLUME 88 FL (80-99); MONOCYTES % (AUTO) 14.6 % (1.0-10.0); NEUTROPHILS % (AUTO) 69.1 % (45.0-75.0); PLATELET COUNT 259 K/UL (150-450); RED BLOOD COUNT 4.16 M/UL (4.20-5.40); RED CELL DISTRIBUTION WIDTH 11.6 % (11.6-14.8); WHITE BLOOD COUNT 8.2 K/UL (4.8-10.8)
[2017-08-29 09:08] LABS: ALANINE AMINOTRANSFERASE 31 U/L (12-78); ALBUMIN 2.5 G/DL (3.4-5.0); ALBUMIN/GLOBULIN RATIO 0.5 (1.0-2.7); ALKALINE PHOSPHATASE 115 U/L (46-116); ANION GAP 5 mmol/L (5-15); ASPARTATE AMINO TRANSFERASE 19 U/L (15-37); BILIRUBIN,TOTAL 0.4 MG/DL (0.2-1.0); BLOOD UREA NITROGEN 16 mg/dL (7-18); CALCIUM 8.8 MG/DL (8.5-10.1); CARBON DIOXIDE 31 MMOL/L (21-32); CHLORIDE 100 MMOL/L (98-107); CREATININE 0.9 MG/DL (0.55-1.30); PHOSPHORUS 2.4 MG/DL (2.5-4.9); POTASSIUM 3.7 MMOL/L (3.5-5.1); SODIUM 136 MMOL/L (136-145)
[2017-08-29] MEDS: Aspirin EC 81mg tab ORAL SCH (09:10)
[2017-08-29] MEDS: Losartan 50mg tab ORAL SCH (09:10)
[2017-08-29] MEDS: Heparin 5000 units/ml inj SUBQ SCH ×2 (09:11→20:43)
[2017-08-29 12:00] VITALS: BP 119/61
--- NOTE | 2017-08-29 12:09 | Diagnostic Imaging Report ---
Indication: Abdominal pain. Gram-negative bacteremia Technique: Spiral acquisitions obtained through the abdomen and pelvis. Patient given oral contrast. No IV contrast utilized, per referring physician request.. Multiplanar reconstructions were generated. Total dose length product 665.5 mGycm. CTDIvol(s) 12.33 mGy. Dose reduction achieved using automated exposure control Comparison: None Findings: The appendix is normal.. Equivocal small distal colonic diverticula. No evidence of diverticulitis. No small bowel distention or small bowel wall thickening. Contrast is seen as far distally as the terminal ileum. No free or loculated intraperitoneal air or fluid is demonstrated. Distal esophagus is unremarkable. There is equivocal wall thickening of the gastric antrum spite apparently adequate distention.. Lack of IV contrast limits assessment of the solid organs. The liver, gallbladder, bile ducts, pancreas, spleen, adrenals are unremarkable. There is bilateral perinephric fat stranding. There is a questionable small interpolar region calculus in the left kidney. Small exophytic left renal cyst is demonstrated. There is a 2.5 cm cyst coming off of the lower pole of the right kidney. There is questionably a small right renal calyceal calculus. No ureteral calculi demonstrated. No hydronephrosis or hydroureter. The bladder is unremarkable. The uterus is absent, presumably postsurgically. No pelvic mass or adenopathy. No retroperitoneal or mesenteric mass or adenopathy. The right lung base demonstrates a large calcified pleural plaque posteriorly. There is some compressive atelectatic changes at both lung bases. The included portion of the ascending thoracic aorta is aneurysmal, measuring 5.1 x 4.8 cm in diameter. The bones are unremarkable except for degenerative lumbar spondylosis changes. Impression: Possible wall thickening of the gastric antrum. If real, could indicate gastritis or peptic ulcer disease. Correlate with clinical findings Ascending thoracic aortic aneurysm, incompletely included. Consider chest CT for further dilation if this has not been worked up previously. Posterior pleural plaque at the right lung base, accounting for radiographic calcification seen on prior chest radiograph Bilateral nonspecific perinephric fat stranding, probably chronic but pyelonephritis or other renal inflammation possible Bilateral nonobstructive intrarenal calyceal calculi Bilateral basilar pulmonary atelectatic changes Evidence of prior hysterectomy Incidental finding of bilateral renal cysts The CT scanner at [facility] is accredited by the [employer] and the scans are performed using protocols designed to limit radiation exposure to as low as reasonably achievable to attain images of sufficient resolution adequate for diagnostic evaluation.
--- NOTE | 2017-08-29 12:43 | Pulmonology Progress Note ---
Assessment/Plan Problems: (1) Bacteremia (2) Sepsis (3) Chest pain (4) Shortness of breath (5) Nausea and vomiting (6) Leucocytosis (7) Hx of CABG (8) History of hypertension (9) CAD (coronary artery disease) Assessment/Plan Blood showing GNB on 08/27, CT abdomen reviewed, opacified Aortic aneurysm echo reviewed BC positive for GNB, E Coli, pansensitive continue abx check cultures on Zosyn day 2 symptomatic treatment f/u WBC Subjective ROS Limited/Unobtainable: No Interval Events: doing better Allergies: Coded Allergies: No Known Allergies (Unverified , 08/25/17) Objective Last 24 Hour Vital Signs Date Time Temp Pulse Resp B/P (MAP) Pulse Ox O2 Delivery O2 Flow Rate FiO2 08/29/17 09:10 140/81 08/29/17 08:16 78 18 Room Air 21 08/29/17 08:00 98.0 78 17 140/81 94 Room Air 98.0 08/29/17 04:08 98.6 71 18 121/68 97 98.6 08/29/17 00:44 98.9 67 18 124/63 95 98.9 08/28/17 20:24 99.4 72 17 128/70 96 99.4 08/28/17 20:00 74 18 Room Air 21 08/28/17 16:48 84 99/73 08/28/17 16:00 98.8 84 20 99/73 98 Room Air 98.8 Intake and Output 08/28/17 08/29/17 19:00 07:00 Intake Total 655 ml 360 ml Balance 655 ml 360 ml Intake Oral 600 ml 360 ml IV Total 55 ml # Voids 3 4 Objective General Appearance: WD/WN, no acute distress HEENT: atraumatic Respiratory/Chest: normal breath sounds Abdomen: normal bowel sounds, soft, non tender Extremities: no cyanosis Skin: no ulcers Neurologic/Psychiatric: turf grower II-XII grossly normal, no motor/sensory deficits Microbiology Date/Time Source Procedure Growth Status 08/27/17 15:10 Blood Blood Culture - Preliminary Gram Negative Bacillus 1 Resulted 08/27/17 14:50 Blood Blood Culture - Preliminary NO GROWTH AFTER 24 HOURS Resulted Laboratory Tests 08/29/17 06:00: White Blood Count 8.2, Red Blood Count 4.16L, Hemoglobin 12.4, Hematocrit 36.8L , Mean Corpuscular Volume 88, Mean Corpuscular Hemoglobin 29.7, Mean Corpuscular Hemoglobin Concent 33.6, Red Cell Distribution Width 11.6, Platelet Count 259, Mean Platelet Volume 7.3, Neutrophils (%) (Auto) 69.1, Lymphocytes (% ) (Auto) 13.0L, Monocytes (%) (Auto) 14.6H, Eosinophils (%) (Auto) 1.1, Basophils (%) (Auto) 2.2H, Erythrocyte Sedimentation Rate 79H 08/29/17 07:25: Sodium Level 136, Potassium Level 3.7, Chloride Level 100, Carbon Dioxide Level 31, Anion Gap 5, Blood Urea Nitrogen 16, Creatinine 0.9, Estimat Glomerular Filtration Rate , Glucose Level 115H, Calcium Level 8.8, Phosphorus Level 2.4L, Magnesium Level 2.0, Total Bilirubin 0.4, Aspartate Amino Transf (AST/SGOT) 19, Alanine Aminotransferase (ALT/SGPT) 31, Alkaline Phosphatase 115, C-Reactive Protein, Quantitative 9.3H, Total Protein 7.6, Albumin 2.5L, Globulin 5.1, Albumin/Globulin Ratio 0.5L Current Medications Medications (Trade) Dose Ordered Sig/Rick Route PRN Reason Start Time Stop Time Status Last Admin Dose Admin Acetaminophen (Tylenol) 650 mg Q4H PRN ORAL T>100.5 08/27/17 15:15 09/24/17 15:14 08/27/17 20:02 Albuterol/ Ipratropium (Albuterol/ Ipratropium) 3 ml Q4H PRN HHN Shortness of Breath 08/27/17 15:00 09/01/17 14:59 Amlodipine Besylate (Norvasc) 2.5 mg DAILY@1700 ORAL 08/27/17 17:00 09/25/17 16:59 Aspirin (Ecotrin) 81 mg DAILY ORAL 08/28/17 09:00 09/25/17 08:59 08/29/17 09:10 Atorvastatin Calcium (Lipitor) 20 mg BEDTIME ORAL 08/27/17 21:00 09/24/17 20:59 08/28/17 20:35 Heparin Sodium (Porcine) (Heparin 5000 units/ml) 5,000 units EVERY 12 HOURS SUBQ 08/27/17 21:00 09/24/17 20:59 08/29/17 09:11 Losartan Potassium (Cozaar) 50 mg DAILY ORAL 08/28/17 09:00 09/26/17 08:59 08/29/17 09:10 Meropenem 1 gm/ Sodium Chloride 55 ml @ 110 mls/hr Q12H IVPB 08/27/17 15:00 09/01/17 23:59 08/29/17 02:01 Mirtazapine (Remeron) 7.5 mg BEDTIME ORAL 08/27/17 21:00 09/26/17 20:59 08/28/17 20:34 Morphine Sulfate (Morphine Sulfate) 2 mg Q4H PRN IVP Severe Pain (Pain Scale 7-10) 08/27/17 15:00 09/03/17 14:59 08/28/17 11:49 Nitroglycerin (Ntg) 0.4 mg Every 5 Minutes PRN SL Prn Chest Pain 08/27/17 14:45 09/24/17 15:14 Ondansetron HCl (Zofran) 4 mg Q6H PRN IVP Nausea & Vomiting 08/27/17 15:15 09/24/17 15:14 Polyethylene Glycol (Miralax) 17 gm DAILYPRN PRN ORAL Constipation 08/27/17 15:15 09/24/17 15:14 Temazepam (Restoril) 15 mg HSPRN PRN ORAL Insomnia 08/27/17 21:00 09/01/17 20:59 08/28/17 21:44 Amber Ryan MD Aug 29, 2017 12:43
--- NOTE | 2017-08-29 15:06 | General Progress Note ---
Assessment/Plan Assessment/Plan anxiety depression remeron 7.5mg qhs provided ro/st d/w daughter Subjective Date patient seen: Aug 29, 2017 Neurologic/Psychiatric: Reports: anxiety, depressed, emotional problems Allergies: Coded Allergies: No Known Allergies (Unverified , 08/25/17) Objective Last 24 Hour Vital Signs Date Time Temp Pulse Resp B/P (MAP) Pulse Ox O2 Delivery O2 Flow Rate FiO2 08/29/17 12:00 98.1 74 18 119/61 93 Room Air 98.1 08/29/17 09:10 140/81 08/29/17 08:16 78 18 Room Air 21 08/29/17 08:00 98.0 78 17 140/81 94 Room Air 98.0 08/29/17 04:08 98.6 71 18 121/68 97 98.6 08/29/17 00:44 98.9 67 18 124/63 95 98.9 08/28/17 20:24 99.4 72 17 128/70 96 99.4 08/28/17 20:00 74 18 Room Air 21 08/28/17 16:48 84 99/73 08/28/17 16:00 98.8 84 20 99/73 98 Room Air 98.8 Intake and Output 08/28/17 08/29/17 19:00 07:00 Intake Total 655 ml 360 ml Balance 655 ml 360 ml Intake Oral 600 ml 360 ml IV Total 55 ml # Voids 3 4 Laboratory Tests 08/29/17 06:00: White Blood Count 8.2, Red Blood Count 4.16L, Hemoglobin 12.4, Hematocrit 36.8L , Mean Corpuscular Volume 88, Mean Corpuscular Hemoglobin 29.7, Mean Corpuscular Hemoglobin Concent 33.6, Red Cell Distribution Width 11.6, Platelet Count 259, Mean Platelet Volume 7.3, Neutrophils (%) (Auto) 69.1, Lymphocytes (% ) (Auto) 13.0L, Monocytes (%) (Auto) 14.6H, Eosinophils (%) (Auto) 1.1, Basophils (%) (Auto) 2.2H, Erythrocyte Sedimentation Rate 79H 08/29/17 07:25: Sodium Level 136, Potassium Level 3.7, Chloride Level 100, Carbon Dioxide Level 31, Anion Gap 5, Blood Urea Nitrogen 16, Creatinine 0.9, Estimat Glomerular Filtration Rate , Glucose Level 115H, Calcium Level 8.8, Phosphorus Level 2.4L, Magnesium Level 2.0, Total Bilirubin 0.4, Aspartate Amino Transf (AST/SGOT) 19, Alanine Aminotransferase (ALT/SGPT) 31, Alkaline Phosphatase 115, C-Reactive Protein, Quantitative 9.3H, Total Protein 7.6, Albumin 2.5L, Globulin 5.1, Albumin/Globulin Ratio 0.5L Height (Feet): 5 Height (Inches): 1.00 Weight (Pounds): 120 General Appearance: no apparent distress, alert Neurologic: oriented x 3, responsive, depressed affect Oscar Barcenas M.D. Aug 29, 2017 15:06
[2017-08-29 16:00] VITALS: BP 132/80
--- NOTE | 2017-08-29 18:41 | Infectious Diseases Prog Note ---
Assessment/Plan Assessment/Plan Assessment: Sepsis, improving- 2ry to E.coli UTI c/w bacteremia- and likely pyelo given n/v -u/a wbc 10-15, nit +, leuk +3; ucx >100K E.coli (tapia S) -Bcx 08/26 3 E.coli (tapia S) ; 08/27 1/ GNRs; 08/28 Bcx p -CT abd/p w/: Possible wall thickening of the gastric antrum. If real, could indicate gastritis or peptic ulcer disease. Correlate with clinical findings. Ascending thoracic aortic aneurysm, incompletely included. Consider chest CT for further dilation if this has not been worked up previously. Posterior pleural plaque at the right lung base, accounting for radiographic calcification seen on prior chest radiograph. Bilateral nonspecific perinephric fat stranding, probably chronic but pyelonephritis or other renal inflammation possible. Bilateral nonobstructive intrarenal calyceal calculi. Bilateral basilar pulmonary atelectatic changes. Evidence of prior hysterectomy. Incidental finding of bilateral renal cysts -CXR: calcifications in the right lung, likely on the basis of old granulomatous disease. Possible small left pleural effusion. No acute process otherwise -Renal US: Essentially unremarkable exam. Incidental finding of bilateral renal cysts. Fever/leukocytosis, improving STELLA, improving Dizziness/tinnitus -MRI brain: Chronic and age-related changes. Old left basal ganglia lacunar infarct. Negative for acute intracranial bleed, mass effect, or infarct HTN Asthma CAD s/p CABG former smoker Anxiety/MDD hysterectomy Plan: -Switch Meropenem abx d#08/16 to Ceftriaxone 2g IV daily for E.coli bacteremia/ UTI/pyelo; upon discharge can transition to PO Levaquin 750mg q48h to complete course (switch to daily if GFR >50) -await clearance of bacteremia prior to discharge -08/27 SP Zosyn #2 -f/u cx -Monitor CBC/BMP, temperatures -aspiration precautions Thank you for this consultation. Will continue to follow along with you. Discussed with RN. Subjective Allergies: Coded Allergies: No Known Allergies (Unverified , 08/25/17) Subjective afebrile in ~48hrs leukocytosis resolved awaiting repeat Bcx feeling better. Objective Vital Signs Last 24 Hour Vital Signs Date Time Temp Pulse Resp B/P (MAP) Pulse Ox O2 Delivery O2 Flow Rate FiO2 08/29/17 17:12 81 132/80 08/29/17 16:00 98.1 81 20 132/80 97 Room Air 98.1 08/29/17 12:00 98.1 74 18 119/61 93 Room Air 98.1 08/29/17 09:10 140/81 08/29/17 08:16 78 18 Room Air 21 08/29/17 08:00 98.0 78 17 140/81 94 Room Air 98.0 08/29/17 04:08 98.6 71 18 121/68 97 98.6 08/29/17 00:44 98.9 67 18 124/63 95 98.9 08/28/17 20:24 99.4 72 17 128/70 96 99.4 08/28/17 20:00 74 18 Room Air 21 Height (Feet): 5 Height (Inches): 1.00 Weight (Pounds): 120 Objective GENERAL: Shows to be elderly female, in no respiratory distress. NECK: Supple. No jugular venous distention. LUNGS: Clear to auscultation and percussion. CARDIAC: S1 is normal. S2 is normal. There is a systolic ejection murmur. No RV lifts, heaves, or thrills noted. ABDOMEN: Soft and nontender. Positive bowel sounds. EXTREMITIES: There is no edema. NEUROLOGIC: She is awake, alert, and responsive. Microbiology Date/Time Source Procedure Growth Status 08/27/17 15:10 Blood Blood Culture - Preliminary Gram Negative Bacillus 1 Resulted 08/27/17 14:50 Blood Blood Culture - Preliminary NO GROWTH AFTER 24 HOURS Resulted Laboratory Tests Test 08/29/17 06:00 08/29/17 07:25 White Blood Count 8.2 K/UL (4.8-10.8) Red Blood Count 4.16 M/UL (4.20-5.40) L Hemoglobin 12.4 G/DL (12.0-16.0) Hematocrit 36.8 % (37.0-47.0) L Mean Corpuscular Volume 88 FL (80-99) Mean Corpuscular Hemoglobin 29.7 PG (27.0-31.0) Mean Corpuscular Hemoglobin Concent 33.6 G/DL (32.0-36.0) Red Cell Distribution Width 11.6 % (11.6-14.8) Platelet Count 259 K/UL (150-450) Mean Platelet Volume 7.3 FL (6.5-10.1) Neutrophils (%) (Auto) 69.1 % (45.0-75.0) Lymphocytes (%) (Auto) 13.0 % (20.0-45.0) L Monocytes (%) (Auto) 14.6 % (1.0-10.0) H Eosinophils (%) (Auto) 1.1 % (0.0-3.0) Basophils (%) (Auto) 2.2 % (0.0-2.0) H Erythrocyte Sedimentation Rate 79 MM/HR (0-30) H Sodium Level 136 MMOL/L (136-145) Potassium Level 3.7 MMOL/L (3.5-5.1) Chloride Level 100 MMOL/L (98-107) Carbon Dioxide Level 31 MMOL/L (21-32) Anion Gap 5 mmol/L (5-15) Blood Urea Nitrogen 16 mg/dL (7-18) Creatinine 0.9 MG/DL (0.55-1.30) Estimat Glomerular Filtration Rate mL/min (>60) Glucose Level 115 MG/DL (74-106) H Calcium Level 8.8 MG/DL (8.5-10.1) Phosphorus Level 2.4 MG/DL (2.5-4.9) L Magnesium Level 2.0 MG/DL (1.8-2.4) Total Bilirubin 0.4 MG/DL (0.2-1.0) Aspartate Amino Transf (AST/SGOT) 19 U/L (15-37) Alanine Aminotransferase (ALT/SGPT) 31 U/L (12-78) Alkaline Phosphatase 115 U/L (46-116) C-Reactive Protein, Quantitative 9.3 mg/dL (0.00-0.90) H Total Protein 7.6 G/DL (6.4-8.2) Albumin 2.5 G/DL (3.4-5.0) L Globulin 5.1 g/dL Albumin/Globulin Ratio 0.5 (1.0-2.7) L Current Medications Medications (Trade) Dose Ordered Sig/Rick Route PRN Reason Start Time Stop Time Status Last Admin Dose Admin Acetaminophen (Tylenol) 650 mg Q4H PRN ORAL T>100.5 08/27/17 15:15 09/24/17 15:14 08/27/17 20:02 Albuterol/ Ipratropium (Albuterol/ Ipratropium) 3 ml Q4H PRN HHN Shortness of Breath 08/27/17 15:00 09/01/17 14:59 Amlodipine Besylate (Norvasc) 2.5 mg DAILY@1700 ORAL 08/27/17 17:00 09/25/17 16:59 08/29/17 17:12 Aspirin (Ecotrin) 81 mg DAILY ORAL 08/28/17 09:00 09/25/17 08:59 08/29/17 09:10 Atorvastatin Calcium (Lipitor) 20 mg BEDTIME ORAL 08/27/17 21:00 09/24/17 20:59 08/28/17 20:35 Heparin Sodium (Porcine) (Heparin 5000 units/ml) 5,000 units EVERY 12 HOURS SUBQ 08/27/17 21:00 09/24/17 20:59 08/29/17 09:11 Losartan Potassium (Cozaar) 50 mg DAILY ORAL 08/28/17 09:00 09/26/17 08:59 08/29/17 09:10 Meropenem 1 gm/ Sodium Chloride 55 ml @ 110 mls/hr Q12H IVPB 08/27/17 15:00 09/01/17 23:59 08/29/17 17:12 Mirtazapine (Remeron) 7.5 mg BEDTIME ORAL 08/27/17 21:00 09/26/17 20:59 08/28/17 20:34 Morphine Sulfate (Morphine Sulfate) 2 mg Q4H PRN IVP Severe Pain (Pain Scale 7-10) 08/27/17 15:00 09/03/17 14:59 08/28/17 11:49 Nitroglycerin (Ntg) 0.4 mg Every 5 Minutes PRN SL Prn Chest Pain 08/27/17 14:45 09/24/17 15:14 Ondansetron HCl (Zofran) 4 mg Q6H PRN IVP Nausea & Vomiting 08/27/17 15:15 09/24/17 15:14 Polyethylene Glycol (Miralax) 17 gm DAILYPRN PRN ORAL Constipation 08/27/17 15:15 09/24/17 15:14 Temazepam (Restoril) 15 mg HSPRN PRN ORAL Insomnia 08/27/17 21:00 09/01/17 20:59 08/28/17 21:44 Sis Carty M.D. Aug 29, 2017 18:41
[2017-08-29 20:00] VITALS: BP 154/82
[2017-08-29] MEDS: Atorvastatin 20mg tab ORAL SCH (20:41)
[2017-08-30] VITALS: BP 143/82
[2017-08-30 04:00] VITALS: BP 141/85
[2017-08-30] MEDS: cefTRIAXone 2 GM in D5W 110 ML IVPB SCH (05:34)
[2017-08-30 08:00] VITALS: BP 132/76
[2017-08-30 08:05] LABS: BASOPHILS % (AUTO) 0.6 % (0.0-2.0); EOSINOPHILS % (AUTO) 1.8 % (0.0-3.0); HEMATOCRIT 35.1 % (37.0-47.0); HEMOGLOBIN 11.9 G/DL (12.0-16.0); LYMPHOCYTES % (AUTO) 15.4 % (20.0-45.0); MEAN CORPUSCULAR VOLUME 89 FL (80-99); MONOCYTES % (AUTO) 13.3 % (1.0-10.0); NEUTROPHILS % (AUTO) 68.9 % (45.0-75.0); PLATELET COUNT 297 K/UL (150-450); RED BLOOD COUNT 3.94 M/UL (4.20-5.40); RED CELL DISTRIBUTION WIDTH 11.8 % (11.6-14.8); WHITE BLOOD COUNT 8.1 K/UL (4.8-10.8)
[2017-08-30 08:46] LABS: ALANINE AMINOTRANSFERASE 35 U/L (12-78); ALBUMIN 2.6 G/DL (3.4-5.0); ALBUMIN/GLOBULIN RATIO 0.5 (1.0-2.7); ALKALINE PHOSPHATASE 122 U/L (46-116); ANION GAP 7 mmol/L (5-15); ASPARTATE AMINO TRANSFERASE 30 U/L (15-37); BILIRUBIN,TOTAL 0.4 MG/DL (0.2-1.0); BLOOD UREA NITROGEN 14 mg/dL (7-18); CALCIUM 9.3 MG/DL (8.5-10.1); CARBON DIOXIDE 31 MMOL/L (21-32); CHLORIDE 100 MMOL/L (98-107); CREATININE 0.9 MG/DL (0.55-1.30); POTASSIUM 3.5 MMOL/L (3.5-5.1); SODIUM 137 MMOL/L (136-145)
[2017-08-30] MEDS ORDERED: Pneumococcal Vaccine 25mcg/0.5ml IM ONE (09:00)
[2017-08-30] MEDS: Aspirin EC 81mg tab ORAL SCH (09:22)
[2017-08-30] MEDS: Losartan 50mg tab ORAL SCH (09:22)
[2017-08-30] MEDS: Heparin 5000 units/ml inj SUBQ SCH ×2 (09:25→20:39)
--- NOTE | 2017-08-30 11:17 | Infectious Diseases Prog Note ---
Assessment/Plan Assessment/Plan Assessment: Sepsis, improving- 2ry to E.coli UTI c/w bacteremia- and likely pyelo given n/v -u/a wbc 10-15, nit +, leuk +3; ucx >100K E.coli (tapia S) -Bcx 08/26 3/ E.coli (tapia S) ; 08/27 1/ E Coli, GPC 08/28 Bcx p -CT abd/p w/: Possible wall thickening of the gastric antrum. If real, could indicate gastritis or peptic ulcer disease. Correlate with clinical findings. Ascending thoracic aortic aneurysm, incompletely included. Consider chest CT for further dilation if this has not been worked up previously. Posterior pleural plaque at the right lung base, accounting for radiographic calcification seen on prior chest radiograph. Bilateral nonspecific perinephric fat stranding, probably chronic but pyelonephritis or other renal inflammation possible. Bilateral nonobstructive intrarenal calyceal calculi. Bilateral basilar pulmonary atelectatic changes. Evidence of prior hysterectomy. Incidental finding of bilateral renal cysts -CXR: calcifications in the right lung, likely on the basis of old granulomatous disease. Possible small left pleural effusion. No acute process otherwise -Renal US: Essentially unremarkable exam. Incidental finding of bilateral renal cysts. Fever/leukocytosis, SP STELAL, improving Dizziness/tinnitus -MRI brain: Chronic and age-related changes. Old left basal ganglia lacunar infarct. Negative for acute intracranial bleed, mass effect, or infarct HTN Asthma CAD s/p CABG former smoker Anxiety/MDD hysterectomy Plan: - add IV Vanco for now ( +ve blood CX : GPC : most likely a contaminant ) - Ceftriaxone ( AB Rx d# ) upon discharge can transition to PO Levaquin 750mg q48h to complete course (switch to daily if GFR >50) - 08/29 SP Meropenem abx d#4 -08/27 SP Zosyn #2 -f/u cx -Monitor CBC/BMP, temperatures -aspiration precautions Subjective Constitutional: Denies: no symptoms, fever, chills, fatigue, anorexia, drenching sweats, other Allergies: Coded Allergies: No Known Allergies (Unverified , 08/25/17) Objective Vital Signs Last 24 Hour Vital Signs Date Time Temp Pulse Resp B/P (MAP) Pulse Ox O2 Delivery O2 Flow Rate FiO2 4/28/18 09:22 132/76 08/30/17 08:27 75 18 Room Air 21 08/30/17 08:00 98.1 86 18 132/76 97 Room Air 98.1 08/30/17 04:00 98.3 70 18 141/85 96 Room Air 98.3 08/30/17 00:00 98.2 69 20 143/82 97 Room Air 98.2 08/29/17 20:00 98.7 68 18 154/82 96 Room Air 98.7 08/29/17 18:57 79 18 Room Air 21 08/29/17 17:12 81 132/80 08/29/17 16:00 98.1 81 20 132/80 97 Room Air 98.1 08/29/17 12:00 98.1 74 18 119/61 93 Room Air 98.1 Height (Feet): 5 Height (Inches): 1.00 Weight (Pounds): 120 HEENT: anicteric Respiratory/Chest: no respiratory distress Cardiovascular: normal rate Abdomen: no organomegaly Microbiology Date/Time Source Procedure Growth Status 08/27/17 15:10 Blood Blood Culture - Final Escherichia Coli Complete 08/27/17 14:50 Blood Blood Culture - Preliminary Gram Positive Cocci Resulted Laboratory Tests Test 08/30/17 05:45 White Blood Count 8.1 K/UL (4.8-10.8) Red Blood Count 3.94 M/UL (4.20-5.40) L Hemoglobin 11.9 G/DL (12.0-16.0) L Hematocrit 35.1 % (37.0-47.0) L Mean Corpuscular Volume 89 FL (80-99) Mean Corpuscular Hemoglobin 30.3 PG (27.0-31.0) Mean Corpuscular Hemoglobin Concent 34.0 G/DL (32.0-36.0) Red Cell Distribution Width 11.8 % (11.6-14.8) Platelet Count 297 K/UL (150-450) Mean Platelet Volume 6.3 FL (6.5-10.1) L Neutrophils (%) (Auto) 68.9 % (45.0-75.0) Lymphocytes (%) (Auto) 15.4 % (20.0-45.0) L Monocytes (%) (Auto) 13.3 % (1.0-10.0) H Eosinophils (%) (Auto) 1.8 % (0.0-3.0) Basophils (%) (Auto) 0.6 % (0.0-2.0) Sodium Level 137 MMOL/L (136-145) Potassium Level 3.5 MMOL/L (3.5-5.1) Chloride Level 100 MMOL/L (98-107) Carbon Dioxide Level 31 MMOL/L (21-32) Anion Gap 7 mmol/L (5-15) Blood Urea Nitrogen 14 mg/dL (7-18) Creatinine 0.9 MG/DL (0.55-1.30) Estimat Glomerular Filtration Rate mL/min (>60) Glucose Level 115 MG/DL (74-106) H Calcium Level 9.3 MG/DL (8.5-10.1) Phosphorus Level 3.0 MG/DL (2.5-4.9) Magnesium Level 2.1 MG/DL (1.8-2.4) Total Bilirubin 0.4 MG/DL (0.2-1.0) Aspartate Amino Transf (AST/SGOT) 30 U/L (15-37) Alanine Aminotransferase (ALT/SGPT) 35 U/L (12-78) Alkaline Phosphatase 122 U/L (46-116) H Total Protein 7.4 G/DL (6.4-8.2) Albumin 2.6 G/DL (3.4-5.0) L Globulin 4.8 g/dL Albumin/Globulin Ratio 0.5 (1.0-2.7) L Current Medications Medications (Trade) Dose Ordered Sig/Rick Route PRN Reason Start Time Stop Time Status Last Admin Dose Admin Acetaminophen (Tylenol) 650 mg Q4H PRN ORAL T>100.5 08/27/17 15:15 09/24/17 15:14 08/27/17 20:02 Albuterol/ Ipratropium (Albuterol/ Ipratropium) 3 ml Q4H PRN HHN Shortness of Breath 08/27/17 15:00 09/01/17 14:59 Amlodipine Besylate (Norvasc) 2.5 mg DAILY@1700 ORAL 08/27/17 17:00 09/25/17 16:59 08/29/17 17:12 Aspirin (Ecotrin) 81 mg DAILY ORAL 08/28/17 09:00 09/25/17 08:59 08/30/17 09:22 Atorvastatin Calcium (Lipitor) 20 mg BEDTIME ORAL 08/27/17 21:00 09/24/17 20:59 08/29/17 20:41 Ceftriaxone Sodium 2 gm/ Dextrose 110 ml @ 220 mls/hr Q24H IVPB 08/30/17 06:00 09/06/17 05:59 08/30/17 05:34 Heparin Sodium (Porcine) (Heparin 5000 units/ml) 5,000 units EVERY 12 HOURS SUBQ 08/27/17 21:00 09/24/17 20:59 08/30/17 09:25 Losartan Potassium (Cozaar) 50 mg DAILY ORAL 08/28/17 09:00 09/26/17 08:59 08/30/17 09:22 Mirtazapine (Remeron) 7.5 mg BEDTIME ORAL 08/27/17 21:00 09/26/17 20:59 08/29/17 20:41 Morphine Sulfate (Morphine Sulfate) 2 mg Q4H PRN IVP Severe Pain (Pain Scale 7-10) 08/27/17 15:00 09/03/17 14:59 08/28/17 11:49 Nitroglycerin (Ntg) 0.4 mg Every 5 Minutes PRN SL Prn Chest Pain 08/27/17 14:45 09/24/17 15:14 Ondansetron HCl (Zofran) 4 mg Q6H PRN IVP Nausea & Vomiting 08/27/17 15:15 09/24/17 15:14 Polyethylene Glycol (Miralax) 17 gm DAILYPRN PRN ORAL Constipation 08/27/17 15:15 09/24/17 15:14 Temazepam (Restoril) 15 mg HSPRN PRN ORAL Insomnia 08/27/17 21:00 09/01/17 20:59 08/29/17 20:41 Tomas Ng MD Aug 30, 2017 11:17
[2017-08-30 12:00] VITALS: BP 143/89
[2017-08-30] MEDS ORDERED: Vancomycin 1gm in D5W 275ml IVPB SCH (13:00)
[2017-08-30 16:00] VITALS: BP_SYST 141; BP_SYST 143; BP_DIAS 77; BP_DIAS 89
[2017-08-30] MEDS ORDERED: DiphenhydrAMINE 50mg/ml Inj IVP PRN (18:45)
[2017-08-30 20:00] VITALS: BP 140/89
[2017-08-30] MEDS: Atorvastatin 20mg tab ORAL SCH (20:36)
[2017-08-30] MEDS ORDERED: Tubing IV Secondary IV ONE ×2 (20:40→21:40)
--- NOTE | 2017-08-30 22:30 | Pulmonology Progress Note ---
Assessment/Plan Problems: (1) Bacteremia (2) Sepsis (3) Chest pain (4) Shortness of breath (5) Nausea and vomiting (6) Leucocytosis (7) Hx of CABG (8) History of hypertension (9) CAD (coronary artery disease) Assessment/Plan E coli CT abdomen reviewed, opacified Aortic aneurysm echo reviewed BC positive for GNB, E Coli, pansensitive continue abx check cultures symptomatic treatment f/u WBC d/w son at the bed site Subjective ROS Limited/Unobtainable: No Interval Events: no new complains Allergies: Coded Allergies: No Known Allergies (Unverified , 08/25/17) Objective Last 24 Hour Vital Signs Date Time Temp Pulse Resp B/P (MAP) Pulse Ox O2 Delivery O2 Flow Rate FiO2 08/30/17 21:02 81 18 Room Air 21 08/30/17 20:00 98.8 89 18 140/89 96 Room Air 98.8 08/30/17 17:06 74 141/77 08/30/17 16:00 98.9 74 18 141/77 98 Room Air 98.9 08/30/17 12:00 98.2 78 18 143/89 98 Room Air 98.2 08/30/17 09:22 132/76 08/30/17 08:27 75 18 Room Air 21 08/30/17 08:00 98.1 86 18 132/76 97 Room Air 98.1 08/30/17 04:00 98.3 70 18 141/85 96 Room Air 98.3 08/30/17 00:00 98.2 69 20 143/82 97 Room Air 98.2 Intake and Output 08/29/17 08/30/17 19:00 07:00 Intake Total 655 ml 220 ml Output Total 0 ml Balance 655 ml 220 ml Intake Oral 600 ml IV Total 55 ml 220 ml Stool Total 0 ml # Voids 3 4 Objective General Appearance: WD/WN, no acute distress HEENT: atraumatic Respiratory/Chest: normal breath sounds Abdomen: normal bowel sounds, soft, non tender Extremities: no cyanosis Skin: no ulcers 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, no motor/sensory deficits Laboratory Tests 08/30/17 05:45: White Blood Count 8.1, Red Blood Count 3.94L, Hemoglobin 11.9L, Hematocrit 35.1L , Mean Corpuscular Volume 89, Mean Corpuscular Hemoglobin 30.3, Mean Corpuscular Hemoglobin Concent 34.0, Red Cell Distribution Width 11.8, Platelet Count 297, Mean Platelet Volume 6.3L, Neutrophils (%) (Auto) 68.9, Lymphocytes ( %) (Auto) 15.4L, Monocytes (%) (Auto) 13.3H, Eosinophils (%) (Auto) 1.8, Basophils (%) (Auto) 0.6, Sodium Level 137, Potassium Level 3.5, Chloride Level 100, Carbon Dioxide Level 31, Anion Gap 7, Blood Urea Nitrogen 14, Creatinine 0.9, Estimat Glomerular Filtration Rate , Glucose Level 115H, Calcium Level 9.3 , Phosphorus Level 3.0, Magnesium Level 2.1, Total Bilirubin 0.4, Aspartate Amino Transf (AST/SGOT) 30, Alanine Aminotransferase (ALT/SGPT) 35, Alkaline Phosphatase 122H, Total Protein 7.4, Albumin 2.6L, Globulin 4.8, Albumin/ Globulin Ratio 0.5L Current Medications Medications (Trade) Dose Ordered Sig/Rick Route PRN Reason Start Time Stop Time Status Last Admin Dose Admin Acetaminophen (Tylenol) 650 mg Q4H PRN ORAL Mild Pain/Temp > 100.5 08/30/17 17:15 09/29/17 17:14 Albuterol/ Ipratropium (Albuterol/ Ipratropium) 3 ml Q4H PRN HHN Shortness of Breath 08/27/17 15:00 09/01/17 14:59 Amlodipine Besylate (Norvasc) 2.5 mg DAILY@1700 ORAL 08/27/17 17:00 09/25/17 16:59 08/30/17 17:06 Aspirin (Ecotrin) 81 mg DAILY ORAL 08/28/17 09:00 09/25/17 08:59 08/30/17 09:22 Atorvastatin Calcium (Lipitor) 20 mg BEDTIME ORAL 08/27/17 21:00 09/24/17 20:59 08/30/17 20:36 Ceftriaxone Sodium 2 gm/ Dextrose 110 ml @ 220 mls/hr Q24H IVPB 08/30/17 06:00 09/06/17 05:59 08/30/17 05:34 Diphenhydramine HCl (Benadryl) 25 mg Q4H PRN IVP Itching 08/30/17 18:45 09/29/17 18:44 Heparin Sodium (Porcine) (Heparin 5000 units/ml) 5,000 units EVERY 12 HOURS SUBQ 08/27/17 21:00 09/24/17 20:59 08/30/17 20:39 Losartan Potassium (Cozaar) 50 mg DAILY ORAL 08/28/17 09:00 09/26/17 08:59 08/30/17 09:22 Mirtazapine (Remeron) 7.5 mg BEDTIME ORAL 08/27/17 21:00 09/26/17 20:59 08/30/17 20:36 Morphine Sulfate (Morphine Sulfate) 2 mg Q4H PRN IVP Severe Pain (Pain Scale 7-10) 08/27/17 15:00 09/03/17 14:59 08/28/17 11:49 Nitroglycerin (Ntg) 0.4 mg Every 5 Minutes PRN SL Prn Chest Pain 08/27/17 14:45 09/24/17 15:14 Ondansetron HCl (Zofran) 4 mg Q6H PRN IVP Nausea & Vomiting 08/27/17 15:15 09/24/17 15:14 Polyethylene Glycol (Miralax) 17 gm DAILYPRN PRN ORAL Constipation 08/27/17 15:15 09/24/17 15:14 Temazepam (Restoril) 15 mg HSPRN PRN ORAL Insomnia 08/27/17 21:00 09/01/17 20:59 08/30/17 20:42 Vancomycin HCl (Vanco rx to dose) 1 ea DAILY PRN MISC Per rx protocol 08/30/17 11:30 09/29/17 11:29 Vancomycin/Sodium Chloride 250 ml @ 166.667 mls/hr Q24H IVPB 08/31/17 14:00 09/05/17 13:59 Amber Ryan MD Aug 30, 2017 22:30
[2017-08-31] VITALS: BP 105/52
[2017-08-31 04:00] VITALS: BP 122/83
[2017-08-31] MEDS: cefTRIAXone 2 GM in D5W 110 ML IVPB SCH (05:16)
[2017-08-31 08:00] VITALS: BP 131/77
[2017-08-31] MEDS: Aspirin EC 81mg tab ORAL SCH (09:02)
[2017-08-31] MEDS: Losartan 50mg tab ORAL SCH (09:03)
[2017-08-31] MEDS: Heparin 5000 units/ml inj SUBQ SCH ×2 (09:04→21:06)
[2017-08-31] MEDS ORDERED: Tubing IV Secondary IV ONE (09:40)
[2017-08-31 12:00] VITALS: BP 119/75
[2017-08-31] MEDS ORDERED: Isovue-300 100ml vial INJ PRN (13:15)
[2017-08-31] MEDS: Vancomycin 750mg/NS 250ml IVPB SCH (13:52)
[2017-08-31 16:00] VITALS: BP 142/81
--- NOTE | 2017-08-31 17:21 | Pulmonology Progress Note ---
Assessment/Plan Problems: (1) Bacteremia (2) Sepsis (3) Chest pain (4) Shortness of breath (5) Nausea and vomiting (6) Leucocytosis (7) Hx of CABG (8) History of hypertension (9) CAD (coronary artery disease) Assessment/Plan blood cultures positive times two echo reviewed BC positive for GNB, E Coli, pansensitive continue abx check culture symptomatic treatment f/u WBC pt agreed with CT angio of chest Subjective ROS Limited/Unobtainable: No Constitutional: Reports: no symptoms HEENT: Repors: no symptoms Respiratory: Reports: no symptoms Allergies: Coded Allergies: No Known Allergies (Unverified , 08/25/17) Objective Last 24 Hour Vital Signs Date Time Temp Pulse Resp B/P (MAP) Pulse Ox O2 Delivery O2 Flow Rate FiO2 08/31/17 16:38 77 142/81 08/31/17 16:00 97.0 77 20 142/81 96 Room Air 97.0 08/31/17 12:00 98.1 78 21 119/75 95 Room Air 98.1 08/31/17 09:22 73 16 Room Air 21 08/31/17 09:03 131/77 08/31/17 08:00 98.6 80 18 131/77 96 Room Air 98.6 08/31/17 04:00 99.1 83 18 122/83 96 Room Air 99.1 08/31/17 00:00 99.0 81 18 105/52 100 Room Air 99.0 08/30/17 21:02 81 18 Room Air 21 08/30/17 20:00 98.8 89 18 140/89 96 Room Air 98.8 Intake and Output 08/30/17 08/31/17 19:00 07:00 Intake Total 1055 ml 120 ml Balance 1055 ml 120 ml Intake Oral 120 ml IV Total 275 ml Other 780 ml # Voids 4 3 Objective General Appearance: WD/WN, no acute distress HEENT: atraumatic Respiratory/Chest: normal breath sounds Abdomen: normal bowel sounds, soft, non tender Extremities: no cyanosis Skin: no ulcers 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, no motor/sensory deficits Microbiology Date/Time Source Procedure Growth Status 08/29/17 20:15 Blood Blood Culture - Preliminary NO GROWTH AFTER 24 HOURS Resulted 08/29/17 20:00 Blood Blood Culture - Preliminary NO GROWTH AFTER 24 HOURS Resulted Current Medications Medications (Trade) Dose Ordered Sig/Rick Route PRN Reason Start Time Stop Time Status Last Admin Dose Admin Acetaminophen (Tylenol) 650 mg Q4H PRN ORAL Mild Pain/Temp > 100.5 08/30/17 17:15 09/29/17 17:14 Albuterol/ Ipratropium (Albuterol/ Ipratropium) 3 ml Q4H PRN HHN Shortness of Breath 08/27/17 15:00 09/01/17 14:59 Amlodipine Besylate (Norvasc) 2.5 mg DAILY@1700 ORAL 08/27/17 17:00 09/25/17 16:59 08/31/17 16:38 Aspirin (Ecotrin) 81 mg DAILY ORAL 08/28/17 09:00 09/25/17 08:59 08/31/17 09:02 Atorvastatin Calcium (Lipitor) 20 mg BEDTIME ORAL 08/27/17 21:00 09/24/17 20:59 08/30/17 20:36 Ceftriaxone Sodium 2 gm/ Dextrose 110 ml @ 220 mls/hr Q24H IVPB 08/30/17 06:00 09/06/17 05:59 08/31/17 05:16 Diphenhydramine HCl (Benadryl) 25 mg Q4H PRN IVP Itching 08/30/17 18:45 09/29/17 18:44 Heparin Sodium (Porcine) (Heparin 5000 units/ml) 5,000 units EVERY 12 HOURS SUBQ 08/27/17 21:00 09/24/17 20:59 08/31/17 09:04 Ioversol (Isovue) 100 ml NOW PRN INJ Radiology Procedure 08/31/17 13:15 09/02/17 13:08 Losartan Potassium (Cozaar) 50 mg DAILY ORAL 08/28/17 09:00 09/26/17 08:59 08/31/17 09:03 Mirtazapine (Remeron) 7.5 mg BEDTIME ORAL 08/27/17 21:00 09/26/17 20:59 08/30/17 20:36 Morphine Sulfate (Morphine Sulfate) 2 mg Q4H PRN IVP Severe Pain (Pain Scale 7-10) 08/27/17 15:00 09/03/17 14:59 08/28/17 11:49 Nitroglycerin (Ntg) 0.4 mg Every 5 Minutes PRN SL Prn Chest Pain 08/27/17 14:45 09/24/17 15:14 Ondansetron HCl (Zofran) 4 mg Q6H PRN IVP Nausea & Vomiting 08/27/17 15:15 09/24/17 15:14 Polyethylene Glycol (Miralax) 17 gm DAILYPRN PRN ORAL Constipation 08/27/17 15:15 09/24/17 15:14 Temazepam (Restoril) 15 mg HSPRN PRN ORAL Insomnia 08/27/17 21:00 09/01/17 20:59 08/30/17 20:42 Vancomycin HCl (Vanco rx to dose) 1 ea DAILY PRN MISC Per rx protocol 08/30/17 11:30 09/29/17 11:29 Vancomycin/Sodium Chloride 250 ml @ 166.667 mls/hr Q24H IVPB 08/31/17 14:00 09/05/17 13:59 08/31/17 13:52 Amber Ryan MD Aug 31, 2017 17:21
--- NOTE | 2017-08-31 17:30 | Cardiology Report ---
APPROVED REPORT EKG Measurement Heart [id number] Normal sinus rhythm Right bundle branch block Borderline ECG
[2017-08-31 20:00] VITALS: BP 145/74
[2017-08-31] MEDS: Atorvastatin 20mg tab ORAL SCH (21:04)
[2017-09-01] VITALS (7 sets, daily range): BP systolic 128–178; BP diastolic 77–97
[2017-09-01] MEDS: cefTRIAXone 2 GM in D5W 110 ML IVPB SCH (05:42)
[2017-09-01] MEDS: Aspirin EC 81mg tab ORAL SCH (08:32)
[2017-09-01] MEDS: Losartan 50mg tab ORAL SCH (08:32)
[2017-09-01] MEDS: Heparin 5000 units/ml inj SUBQ SCH ×2 (08:33→20:48)
[2017-09-01] MEDS ORDERED: Isovue-370 150ml vial INJ PRN (08:45)
[2017-09-01 09:15] LABS: BASOPHILS % (AUTO) 2.3 % (0.0-2.0); EOSINOPHILS % (AUTO) 2.5 % (0.0-3.0); HEMATOCRIT 34.3 % (37.0-47.0); HEMOGLOBIN 11.9 G/DL (12.0-16.0); LYMPHOCYTES % (AUTO) 10.5 % (20.0-45.0); MEAN CORPUSCULAR VOLUME 89 FL (80-99); MONOCYTES % (AUTO) 8.9 % (1.0-10.0); NEUTROPHILS % (AUTO) 75.8 % (45.0-75.0); PLATELET COUNT 402 K/UL (150-450); RED BLOOD COUNT 3.84 M/UL (4.20-5.40); RED CELL DISTRIBUTION WIDTH 11.8 % (11.6-14.8); WHITE BLOOD COUNT 9.8 K/UL (4.8-10.8)
[2017-09-01 09:48] LABS: ALANINE AMINOTRANSFERASE 44 U/L (12-78); ALBUMIN 2.7 G/DL (3.4-5.0); ALBUMIN/GLOBULIN RATIO 0.5 (1.0-2.7); ALKALINE PHOSPHATASE 117 U/L (46-116); ANION GAP 5 mmol/L (5-15); ASPARTATE AMINO TRANSFERASE 43 U/L (15-37); BILIRUBIN,TOTAL 0.3 MG/DL (0.2-1.0); BLOOD UREA NITROGEN 12 mg/dL (7-18); CALCIUM 9.5 MG/DL (8.5-10.1); CARBON DIOXIDE 32 MMOL/L (21-32); CHLORIDE 99 MMOL/L (98-107); CREATININE 0.9 MG/DL (0.55-1.30); PHOSPHORUS 3.4 MG/DL (2.5-4.9); POTASSIUM 3.9 MMOL/L (3.5-5.1); SODIUM 136 MMOL/L (136-145)
--- NOTE | 2017-09-01 10:51 | Cardiology Report ---
APPROVED REPORT EXAM: Two-dimensional and M-mode echocardiogram with Doppler and color Doppler. INDICATION Left Ventricular Function M-Mode DIMENSIONS IVSd1.1 (0.7-1.1cm)Left Atrium (MM)2.5 (1.6-4.0cm) LVDd4.7 (3.5-5.6cm)Aortic Root4.0 (2.0-3.7cm) PWd1.0 (0.7-1.1cm)Aortic Cusp Exc.1.9 (1.5-2.0cm) LVDs4.4 (2.5-4.0cm) PWs1.3 cm Normal left ventricular chamber size, systolic function and wall motion. Left ventricular ejection fraction estimated to be 60 %. Borderline left ventricular hypertrophy. Anterior Echo-free space, may be due to pericardial fat or effusion. All other cardiac chamber sizes are within normal limits. Focal aortic valve sclerosis with adequate cusp excursion. Thickened mitral valve leaflets with normal excursion. Mild mitral annulus and aortic root calcification. Normal pulmonic valve structure. Normal tricuspid valve structure. IVC measures at 1.8 with physiological collapse. A color flow and spectral Doppler study was performed and revealed: Moderate aortic insufficiency. No mitral regurgitation. Mitral diastolic velocities suggest mild left ventricular diastolic dysfunction (Grade I). Trace tricuspid regurgitation. Tricuspid systolic velocities suggests peak right ventricular systolic pressure of 34 mmHg. No pulmonic regurgitation present.
--- NOTE | 2017-09-01 13:01 | Pulmonology Progress Note ---
Assessment/Plan Problems: (1) Bacteremia (2) Sepsis (3) Chest pain (4) Shortness of breath (5) Nausea and vomiting (6) Leucocytosis (7) Hx of CABG (8) History of hypertension (9) CAD (coronary artery disease) Assessment/Plan ct chest done, results pendign the most recent blood cultures are negative. echo reviewed BC positive for GNB, E Coli, pansensitive continue abx check culture symptomatic treatment Subjective ROS Limited/Unobtainable: No Constitutional: Reports: no symptoms HEENT: Repors: no symptoms Respiratory: Reports: no symptoms Allergies: Coded Allergies: No Known Allergies (Unverified , 08/25/17) Objective Last 24 Hour Vital Signs Date Time Temp Pulse Resp B/P (MAP) Pulse Ox O2 Delivery O2 Flow Rate FiO2 09/01/17 08:32 140/77 09/01/17 08:02 71 18 Room Air 21 09/01/17 08:00 98.3 71 18 140/77 100 Room Air 98.3 09/01/17 04:00 97.9 78 20 128/78 95 Room Air 97.9 09/01/17 00:00 98.2 82 20 136/79 96 Room Air 98.2 08/31/17 21:57 71 16 Room Air 21 08/31/17 20:00 98.8 72 20 145/74 96 98.8 08/31/17 16:38 77 142/81 08/31/17 16:00 97.0 77 20 142/81 96 Room Air 97.0 Intake and Output 08/31/17 09/01/17 19:00 07:00 Intake Total 400 ml 240 ml Balance 400 ml 240 ml Intake Oral 400 ml 240 ml # Voids 4 4 # Bowel Movements 2 Objective General Appearance: WD/WN, no acute distress HEENT: atraumatic Respiratory/Chest: normal breath sounds Abdomen: normal bowel sounds, soft, non tender Extremities: no cyanosis Skin: no ulcers Neurologic/Psychiatric: chicken hanger II-XII grossly normal, no motor/sensory deficits Microbiology Date/Time Source Procedure Growth Status 08/29/17 20:15 Blood Blood Culture - Preliminary NO GROWTH AFTER 48 HOURS Resulted 08/29/17 20:00 Blood Blood Culture - Preliminary NO GROWTH AFTER 48 HOURS Resulted Laboratory Tests 09/01/17 08:05: White Blood Count 9.8, Red Blood Count 3.84L, Hemoglobin 11.9L, Hematocrit 34.3L , Mean Corpuscular Volume 89, Mean Corpuscular Hemoglobin 31.0, Mean Corpuscular Hemoglobin Concent 34.7, Red Cell Distribution Width 11.8, Platelet Count 402, Mean Platelet Volume 6.0L, Neutrophils (%) (Auto) 75.8H, Lymphocytes (%) (Auto) 10.5L, Monocytes (%) (Auto) 8.9, Eosinophils (%) (Auto) 2.5, Basophils (%) (Auto) 2.3H, Erythrocyte Sedimentation Rate 94H, Sodium Level 136 , Potassium Level 3.9, Chloride Level 99, Carbon Dioxide Level 32, Anion Gap 5, Blood Urea Nitrogen 12, Creatinine 0.9, Estimat Glomerular Filtration Rate , Glucose Level 139H, Calcium Level 9.5, Phosphorus Level 3.4, Magnesium Level 2.1 , Total Bilirubin 0.3, Aspartate Amino Transf (AST/SGOT) 43H, Alanine Aminotransferase (ALT/SGPT) 44, Alkaline Phosphatase 117H, C-Reactive Protein, Quantitative 8.5H, Total Protein 7.9, Albumin 2.7L, Globulin 5.2, Albumin/ Globulin Ratio 0.5L Current Medications Medications (Trade) Dose Ordered Sig/Rick Route PRN Reason Start Time Stop Time Status Last Admin Dose Admin Acetaminophen (Tylenol) 650 mg Q4H PRN ORAL Mild Pain/Temp > 100.5 08/30/17 17:15 09/29/17 17:14 Albuterol/ Ipratropium (Albuterol/ Ipratropium) 3 ml Q4H PRN HHN Shortness of Breath 08/27/17 15:00 09/01/17 14:59 Amlodipine Besylate (Norvasc) 2.5 mg DAILY@1700 ORAL 08/27/17 17:00 09/25/17 16:59 08/31/17 16:38 Aspirin (Ecotrin) 81 mg DAILY ORAL 08/28/17 09:00 09/25/17 08:59 09/01/17 08:32 Atorvastatin Calcium (Lipitor) 20 mg BEDTIME ORAL 08/27/17 21:00 09/24/17 20:59 08/31/17 21:04 Ceftriaxone Sodium 2 gm/ Dextrose 110 ml @ 220 mls/hr Q24H IVPB 08/30/17 06:00 09/06/17 05:59 09/01/17 05:42 Diphenhydramine HCl (Benadryl) 25 mg Q4H PRN IVP Itching 08/30/17 18:45 09/29/17 18:44 Heparin Sodium (Porcine) (Heparin 5000 units/ml) 5,000 units EVERY 12 HOURS SUBQ 08/27/17 21:00 09/24/17 20:59 09/01/17 08:33 Iopamidol (Isovue-370 150ml) 150 ml NOW PRN INJ Radiology Procedure 09/01/17 08:45 09/02/17 23:59 Ioversol (Isovue) 100 ml NOW PRN INJ Radiology Procedure 08/31/17 13:15 09/02/17 13:08 Losartan Potassium (Cozaar) 50 mg DAILY ORAL 08/28/17 09:00 09/26/17 08:59 09/01/17 08:32 Mirtazapine (Remeron) 7.5 mg BEDTIME ORAL 08/27/17 21:00 09/26/17 20:59 08/31/17 21:05 Morphine Sulfate (Morphine Sulfate) 2 mg Q4H PRN IVP Severe Pain (Pain Scale 7-10) 08/27/17 15:00 09/03/17 14:59 08/28/17 11:49 Nitroglycerin (Ntg) 0.4 mg Every 5 Minutes PRN SL Prn Chest Pain 08/27/17 14:45 09/24/17 15:14 Ondansetron HCl (Zofran) 4 mg Q6H PRN IVP Nausea & Vomiting 08/27/17 15:15 09/24/17 15:14 Polyethylene Glycol (Miralax) 17 gm DAILYPRN PRN ORAL Constipation 08/27/17 15:15 09/24/17 15:14 Temazepam (Restoril) 15 mg HSPRN PRN ORAL Insomnia 08/27/17 21:00 09/01/17 20:59 08/31/17 21:04 Vancomycin HCl (Vanco rx to dose) 1 ea DAILY PRN MISC Per rx protocol 08/30/17 11:30 09/29/17 11:29 Vancomycin/Sodium Chloride 250 ml @ 166.667 mls/hr Q24H IVPB 4/29/18 14:00 09/05/17 13:59 08/31/17 13:52 Amber Ryan MD Sep 01, 2017 13:01
[2017-09-01] MEDS: Vancomycin 750mg/NS 250ml IVPB SCH (14:17)
--- NOTE | 2017-09-01 14:55 | Geriatric Progress Note ---
Assessment/Plan Assessment/Plan anxiety depression remeron 7.5mg qhs provided ro/st d/w daughter Subjective Interval Events 09/01/17 Mood/Memory: Reports: anxiety, depressed feelings, emotional problems Geriatric Geriatric Last 24 Hour Vital Signs Date Time Temp Pulse Resp B/P (MAP) Pulse Ox O2 Delivery O2 Flow Rate FiO2 09/01/17 13:31 85 148/78 09/01/17 12:58 98.1 82 17 178/97 98 Room Air 98.1 09/01/17 08:32 140/77 09/01/17 08:02 71 18 Room Air 21 09/01/17 08:00 98.3 71 18 140/77 100 Room Air 98.3 09/01/17 04:00 97.9 78 20 128/78 95 Room Air 97.9 09/01/17 00:00 98.2 82 20 136/79 96 Room Air 98.2 08/31/17 21:57 71 16 Room Air 21 08/31/17 20:00 98.8 72 20 145/74 96 98.8 08/31/17 16:38 77 142/81 08/31/17 16:00 97.0 77 20 142/81 96 Room Air 97.0 Intake and Output 08/31/17 09/01/17 19:00 07:00 Intake Total 400 ml 240 ml Balance 400 ml 240 ml Intake Oral 400 ml 240 ml # Voids 4 4 # Bowel Movements 2 Laboratory Tests Test 09/01/17 08:05 White Blood Count 9.8 K/UL (4.8-10.8) Red Blood Count 3.84 M/UL (4.20-5.40) L Hemoglobin 11.9 G/DL (12.0-16.0) L Hematocrit 34.3 % (37.0-47.0) L Mean Corpuscular Volume 89 FL (80-99) Mean Corpuscular Hemoglobin 31.0 PG (27.0-31.0) Mean Corpuscular Hemoglobin Concent 34.7 G/DL (32.0-36.0) Red Cell Distribution Width 11.8 % (11.6-14.8) Platelet Count 402 K/UL (150-450) Mean Platelet Volume 6.0 FL (6.5-10.1) L Neutrophils (%) (Auto) 75.8 % (45.0-75.0) H Lymphocytes (%) (Auto) 10.5 % (20.0-45.0) L Monocytes (%) (Auto) 8.9 % (1.0-10.0) Eosinophils (%) (Auto) 2.5 % (0.0-3.0) Basophils (%) (Auto) 2.3 % (0.0-2.0) H Erythrocyte Sedimentation Rate 94 MM/HR (0-30) H Sodium Level 136 MMOL/L (136-145) Potassium Level 3.9 MMOL/L (3.5-5.1) Chloride Level 99 MMOL/L (98-107) Carbon Dioxide Level 32 MMOL/L (21-32) Anion Gap 5 mmol/L (5-15) Blood Urea Nitrogen 12 mg/dL (7-18) Creatinine 0.9 MG/DL (0.55-1.30) Estimat Glomerular Filtration Rate mL/min (>60) Glucose Level 139 MG/DL (74-106) H Calcium Level 9.5 MG/DL (8.5-10.1) Phosphorus Level 3.4 MG/DL (2.5-4.9) Magnesium Level 2.1 MG/DL (1.8-2.4) Total Bilirubin 0.3 MG/DL (0.2-1.0) Aspartate Amino Transf (AST/SGOT) 43 U/L (15-37) H Alanine Aminotransferase (ALT/SGPT) 44 U/L (12-78) Alkaline Phosphatase 117 U/L (46-116) H C-Reactive Protein, Quantitative 8.5 mg/dL (0.00-0.90) H Total Protein 7.9 G/DL (6.4-8.2) Albumin 2.7 G/DL (3.4-5.0) L Globulin 5.2 g/dL Albumin/Globulin Ratio 0.5 (1.0-2.7) L Current Medications Medications (Trade) Dose Ordered Sig/Rick Route PRN Reason Start Time Stop Time Status Last Admin Dose Admin Acetaminophen (Tylenol) 650 mg Q4H PRN ORAL Mild Pain/Temp > 100.5 08/30/17 17:15 09/29/17 17:14 Albuterol/ Ipratropium (Albuterol/ Ipratropium) 3 ml Q4H PRN HHN Shortness of Breath 08/27/17 15:00 09/01/17 14:59 Amlodipine Besylate (Norvasc) 2.5 mg DAILY@1700 ORAL 08/27/17 17:00 09/25/17 16:59 08/31/17 16:38 Aspirin (Ecotrin) 81 mg DAILY ORAL 08/28/17 09:00 09/25/17 08:59 09/01/17 08:32 Atorvastatin Calcium (Lipitor) 20 mg BEDTIME ORAL 08/27/17 21:00 09/24/17 20:59 08/31/17 21:04 Ceftriaxone Sodium 2 gm/ Dextrose 110 ml @ 220 mls/hr Q24H IVPB 08/30/17 06:00 09/06/17 05:59 09/01/17 05:42 Clonidine HCl (Catapres Tab) 0.1 mg EVERY 6 HOURS PRN ORAL For High Blood Pressure 09/01/17 13:30 10/01/17 13:14 Diphenhydramine HCl (Benadryl) 25 mg Q4H PRN IVP Itching 08/30/17 18:45 09/29/17 18:44 Heparin Sodium (Porcine) (Heparin 5000 units/ml) 5,000 units EVERY 12 HOURS SUBQ 08/27/17 21:00 09/24/17 20:59 09/01/17 08:33 Iopamidol (Isovue-370 150ml) 150 ml NOW PRN INJ Radiology Procedure 09/01/17 08:45 09/02/17 23:59 Ioversol (Isovue) 100 ml NOW PRN INJ Radiology Procedure 08/31/17 13:15 09/02/17 13:08 Losartan Potassium (Cozaar) 50 mg DAILY ORAL 08/28/17 09:00 09/26/17 08:59 09/01/17 08:32 Mirtazapine (Remeron) 7.5 mg BEDTIME ORAL 08/27/17 21:00 09/26/17 20:59 08/31/17 21:05 Morphine Sulfate (Morphine Sulfate) 2 mg Q4H PRN IVP Severe Pain (Pain Scale 7-10) 08/27/17 15:00 09/03/17 14:59 08/28/17 11:49 Nitroglycerin (Ntg) 0.4 mg Every 5 Minutes PRN SL Prn Chest Pain 08/27/17 14:45 09/24/17 15:14 Ondansetron HCl (Zofran) 4 mg Q6H PRN IVP Nausea & Vomiting 08/27/17 15:15 09/24/17 15:14 Polyethylene Glycol (Miralax) 17 gm DAILYPRN PRN ORAL Constipation 08/27/17 15:15 09/24/17 15:14 Temazepam (Restoril) 15 mg HSPRN PRN ORAL Insomnia 08/27/17 21:00 09/01/17 20:59 08/31/17 21:04 Vancomycin HCl (Vanco rx to dose) 1 ea DAILY PRN MISC Per rx protocol 08/30/17 11:30 09/29/17 11:29 Vancomycin/Sodium Chloride 250 ml @ 166.667 mls/hr Q24H IVPB 08/31/17 14:00 09/05/17 13:59 09/01/17 14:17 Height (Feet): 5 Height (Inches): 1.00 Weight (Pounds): 120 Neurologic: alert, oriented x3, responsive Psychiatric Behavior: cooperative Language/Speech: intact Orientation: person, place, time Affect: appropriate, restricted Insight: Oscar Babb M.D. Sep 01, 2017 14:55
--- NOTE | 2017-09-01 16:30 | Progress Note ---
DATE: 08/31/2017 Late entry SUBJECTIVE: The patient continues to have anxiety and episodes of tearfulness, sleep is better, appetite is improved after the family started bringing food from home. No behavior issues noted. She is pleasant. MENTAL STATUS EXAMINATION: The patient is alert and oriented times self, place, and situation. ASSESSMENT: 1. Anxiety disorder 2. Depression. PLAN: 1. We will continue the current medication. 2. We discussed the case with family. 3. We will continue to provide the patient with supportive therapy and reality orientation. Oscar Barcenas M.D. DR: Reza JOB#: [id number] CC:
--- NOTE | 2017-09-01 17:04 | Infectious Diseases Prog Note ---
Assessment/Plan Assessment/Plan Assessment: Sepsis,SP- 2ry to E.coli UTI c/w bacteremia- and likely pyelo given n/v -u/a wbc 10-15, nit +, leuk +3; ucx >100K E.coli (tapia S) -Bcx 08/26 3/ E.coli (tapia S) ; 08/27 1/ E Coli, 1/ Microccus sp (contaminant) 08/29 Bcx NTD -CT abd/p w/: Possible wall thickening of the gastric antrum. If real, could indicate gastritis or peptic ulcer disease. Correlate with clinical findings. Ascending thoracic aortic aneurysm, incompletely included. Consider chest CT for further dilation if this has not been worked up previously. Posterior pleural plaque at the right lung base, accounting for radiographic calcification seen on prior chest radiograph. Bilateral nonspecific perinephric fat stranding, probably chronic but pyelonephritis or other renal inflammation possible. Bilateral nonobstructive intrarenal calyceal calculi. Bilateral basilar pulmonary atelectatic changes. Evidence of prior hysterectomy. Incidental finding of bilateral renal cysts -CXR: calcifications in the right lung, likely on the basis of old granulomatous disease. Possible small left pleural effusion. No acute process otherwise -Renal US: Essentially unremarkable exam. Incidental finding of bilateral renal cysts. Fever/leukocytosis, SP STELLA, improving Dizziness/tinnitus -MRI brain: Chronic and age-related changes. Old left basal ganglia lacunar infarct. Negative for acute intracranial bleed, mass effect, or infarct HTN Asthma CAD s/p CABG former smoker Anxiety/MDD hysterectomy Plan: - D/c IV Vanco #3 as microccus in blood is contaminant - Continue Ceftriaxone ( AB Rx d# ) upon discharge can transition to PO Levaquin 750mg q48h to complete course (switch to daily if GFR >50) - 08/29 SP Meropenem abx d#4 -08/27 SP Zosyn #2 -f/u cx -Monitor CBC/BMP, temperatures -aspiration precautions Subjective Allergies: Coded Allergies: No Known Allergies (Unverified , 08/25/17) Subjective afebrile in ~48hrs leukocytosis resolved awaiting repeat Bcx feeling better. Objective Vital Signs Last 24 Hour Vital Signs Date Time Temp Pulse Resp B/P (MAP) Pulse Ox O2 Delivery O2 Flow Rate FiO2 09/01/17 16:52 71 155/78 09/01/17 16:00 98.4 71 16 155/78 97 Room Air 98.4 09/01/17 13:31 85 148/78 09/01/17 12:58 98.1 82 17 178/97 98 Room Air 98.1 09/01/17 08:32 140/77 09/01/17 08:02 71 18 Room Air 21 09/01/17 08:00 98.3 71 18 140/77 100 Room Air 98.3 09/01/17 04:00 97.9 78 20 128/78 95 Room Air 97.9 09/01/17 00:00 98.2 82 20 136/79 96 Room Air 98.2 08/31/17 21:57 71 16 Room Air 21 08/31/17 20:00 98.8 72 20 145/74 96 98.8 Height (Feet): 5 Height (Inches): 1.00 Weight (Pounds): 120 Objective GENERAL: Shows to be elderly female, in no respiratory distress. NECK: Supple. No jugular venous distention. LUNGS: Clear to auscultation and percussion. CARDIAC: S1 is normal. S2 is normal. There is a systolic ejection murmur. No RV lifts, heaves, or thrills noted. ABDOMEN: Soft and nontender. Positive bowel sounds. EXTREMITIES: There is no edema. NEUROLOGIC: She is awake, alert, and responsive. Microbiology Date/Time Source Procedure Growth Status 08/29/17 20:15 Blood Blood Culture - Preliminary NO GROWTH AFTER 48 HOURS Resulted 08/29/17 20:00 Blood Blood Culture - Preliminary NO GROWTH AFTER 48 HOURS Resulted Laboratory Tests Test 09/01/17 08:05 White Blood Count 9.8 K/UL (4.8-10.8) Red Blood Count 3.84 M/UL (4.20-5.40) L Hemoglobin 11.9 G/DL (12.0-16.0) L Hematocrit 34.3 % (37.0-47.0) L Mean Corpuscular Volume 89 FL (80-99) Mean Corpuscular Hemoglobin 31.0 PG (27.0-31.0) Mean Corpuscular Hemoglobin Concent 34.7 G/DL (32.0-36.0) Red Cell Distribution Width 11.8 % (11.6-14.8) Platelet Count 402 K/UL (150-450) Mean Platelet Volume 6.0 FL (6.5-10.1) L Neutrophils (%) (Auto) 75.8 % (45.0-75.0) H Lymphocytes (%) (Auto) 10.5 % (20.0-45.0) L Monocytes (%) (Auto) 8.9 % (1.0-10.0) Eosinophils (%) (Auto) 2.5 % (0.0-3.0) Basophils (%) (Auto) 2.3 % (0.0-2.0) H Erythrocyte Sedimentation Rate 94 MM/HR (0-30) H Sodium Level 136 MMOL/L (136-145) Potassium Level 3.9 MMOL/L (3.5-5.1) Chloride Level 99 MMOL/L (98-107) Carbon Dioxide Level 32 MMOL/L (21-32) Anion Gap 5 mmol/L (5-15) Blood Urea Nitrogen 12 mg/dL (7-18) Creatinine 0.9 MG/DL (0.55-1.30) Estimat Glomerular Filtration Rate mL/min (>60) Glucose Level 139 MG/DL (74-106) H Calcium Level 9.5 MG/DL (8.5-10.1) Phosphorus Level 3.4 MG/DL (2.5-4.9) Magnesium Level 2.1 MG/DL (1.8-2.4) Total Bilirubin 0.3 MG/DL (0.2-1.0) Aspartate Amino Transf (AST/SGOT) 43 U/L (15-37) H Alanine Aminotransferase (ALT/SGPT) 44 U/L (12-78) Alkaline Phosphatase 117 U/L (46-116) H C-Reactive Protein, Quantitative 8.5 mg/dL (0.00-0.90) H Total Protein 7.9 G/DL (6.4-8.2) Albumin 2.7 G/DL (3.4-5.0) L Globulin 5.2 g/dL Albumin/Globulin Ratio 0.5 (1.0-2.7) L Current Medications Medications (Trade) Dose Ordered Sig/Rick Route PRN Reason Start Time Stop Time Status Last Admin Dose Admin Acetaminophen (Tylenol) 650 mg Q4H PRN ORAL Mild Pain/Temp > 100.5 08/30/17 17:15 09/29/17 17:14 Amlodipine Besylate (Norvasc) 2.5 mg DAILY@1700 ORAL 08/27/17 17:00 09/25/17 16:59 09/01/17 16:52 Aspirin (Ecotrin) 81 mg DAILY ORAL 08/28/17 09:00 09/25/17 08:59 09/01/17 08:32 Atorvastatin Calcium (Lipitor) 20 mg BEDTIME ORAL 08/27/17 21:00 09/24/17 20:59 08/31/17 21:04 Ceftriaxone Sodium 2 gm/ Dextrose 110 ml @ 220 mls/hr Q24H IVPB 08/30/17 06:00 09/06/17 05:59 09/01/17 05:42 Clonidine HCl (Catapres Tab) 0.1 mg EVERY 6 HOURS PRN ORAL For High Blood Pressure 09/01/17 13:30 10/01/17 13:14 Diphenhydramine HCl (Benadryl) 25 mg Q4H PRN IVP Itching 08/30/17 18:45 09/29/17 18:44 Heparin Sodium (Porcine) (Heparin 5000 units/ml) 5,000 units EVERY 12 HOURS SUBQ 08/27/17 21:00 09/24/17 20:59 09/01/17 08:33 Iopamidol (Isovue-370 150ml) 150 ml NOW PRN INJ Radiology Procedure 09/01/17 08:45 09/02/17 23:59 Ioversol (Isovue) 100 ml NOW PRN INJ Radiology Procedure 08/31/17 13:15 09/02/17 13:08 Losartan Potassium (Cozaar) 50 mg DAILY ORAL 08/28/17 09:00 09/26/17 08:59 09/01/17 08:32 Mirtazapine (Remeron) 7.5 mg BEDTIME ORAL 08/27/17 21:00 09/26/17 20:59 08/31/17 21:05 Morphine Sulfate (Morphine Sulfate) 2 mg Q4H PRN IVP Severe Pain (Pain Scale 7-10) 08/27/17 15:00 09/03/17 14:59 08/28/17 11:49 Nitroglycerin (Ntg) 0.4 mg Every 5 Minutes PRN SL Prn Chest Pain 08/27/17 14:45 09/24/17 15:14 Ondansetron HCl (Zofran) 4 mg Q6H PRN IVP Nausea & Vomiting 08/27/17 15:15 09/24/17 15:14 Polyethylene Glycol (Miralax) 17 gm DAILYPRN PRN ORAL Constipation 08/27/17 15:15 09/24/17 15:14 Temazepam (Restoril) 15 mg HSPRN PRN ORAL Insomnia 08/27/17 21:00 09/01/17 20:59 08/31/17 21:04 Vancomycin HCl (Vanco rx to dose) 1 ea DAILY PRN MISC Per rx protocol 08/30/17 11:30 09/29/17 11:29 Vancomycin/Sodium Chloride 250 ml @ 166.667 mls/hr Q24H IVPB 08/31/17 14:00 09/05/17 13:59 09/01/17 14:17 Sis Carty M.D. Sep 01, 2017 17:04
--- NOTE | 2017-09-01 18:33 | Diagnostic Imaging Report ---
Indication: Aneurysm Technique: CT angiogram performed utilizing automated exposure control with intravenous contrast. Axial, sagittal and coronal reconstructions were obtained. 3-D volumetric reconstructions were also performed. CT dose: Total DLP 703 mGycm; CTDI vol 0.2, 8.1, 48.7, 13.2 mGy Comparison: No prior CT angiogram of the chest available for comparison. Findings: Please note that evaluation limited due to lack of cardiac gating. Aneurysmal dilatation of the ascending aorta up to approximately 5 cm in just diameter. There is no evidence of aortic dissection. There is overall mild atherosclerotic disease of the thoracic aorta. There is conventional branching anatomy of the great vessels. There is mild calcifications at the origin of the left common carotid artery without appreciable significant stenosis however evaluation limited due to streak artifact from dense contrast in a crossing left brachiocephalic vein. Visualized portions of the common carotid and vertebral arteries are widely patent. Visualized portions of the subclavian arteries patent and normal in caliber. The abdominal aorta is normal in caliber with more moderate atherosclerotic disease. There are ostial calcifications at the celiac and bilateral renal arteries, the distal branches of which appear patent. There is mild cardiomegaly there is evidence of prior CABG. [place] coronary arteries are calcified. There is no pericardial effusion. The thyroid is remarkable. No pathologically enlarged hilar or mediastinal lymphadenopathy is seen. Some calcified mediastinal and hilar lymph nodes are seen. There is a calcified granuloma in the right lower lobe. There is dependent bibasilar atelectasis. There is a large calcified pleural plaque adjacent to the right lower lobe measuring 3.5 cm in transverse dimension. There is no pleural effusion or pneumothorax. There is a 4 mm lung nodule in the superior segment of the right upper lobe. There is a 5 mm focus of enhancement within the posterior right hepatic lobe (series 5 image 187) which is too small to fully characterize but may represent a flash filling hemangioma. Gallbladder is contracted, limiting its evaluation. Adrenal glands, kidneys, pancreas, spleen and visualized portions of the bowel grossly unremarkable. There are degenerative changes of the spine. There is prior median sternotomy. IMPRESSION: * Thoracic aortic aneurysm measuring up to 5 cm. No evidence of thoracic aortic dissection. Overall mild atherosclerotic calcification of the thoracic aorta. Follow-up recommended. * Mild cardiomegaly and evidence of prior CABG. * Evidence of prior granulomatous exposure with calcified pulmonary granulomas, calcified distended and hilar lymph nodes. Calcified right pleural plaque. * 4 millimeter lung nodule in the superior segment of the right lower lobe. Patient is deemed low risk for lung cancer then recommend optional follow-up in 12 months, as per 2017 Fleischner's Society criteria recommendations. * 5 mm rounded focus of enhancement within the posterior right hepatic lobe too small to definitively characterize. Considerations include flash filling hemangioma, additional etiologies not entirely excluded. Recommend further evaluation with abdominal ultrasound and/or liver protocol CT or MRI on an routine basis as clinically indicated. The CT scanner at [facility] is accredited by the [employer] and the scans are performed using protocols designed to limit radiation exposure to as low as reasonably achievable to attain images of sufficient resolution adequate for diagnostic evaluation.
[2017-09-01] MEDS: Atorvastatin 20mg tab ORAL SCH (20:47)
[2017-09-02] VITALS: BP 131/71
[2017-09-02 04:00] VITALS: BP 130/85
[2017-09-02] MEDS: cefTRIAXone 2 GM in D5W 110 ML IVPB SCH (05:23)
[2017-09-02 08:00] VITALS: BP 125/72
[2017-09-02] MEDS: Aspirin EC 81mg tab ORAL SCH (08:39)
[2017-09-02] MEDS: Losartan 50mg tab ORAL SCH ×2 (08:40→08:45)
[2017-09-02] MEDS: Heparin 5000 units/ml inj SUBQ SCH (08:41)
[2017-09-02 12:00] VITALS: BP 143/75
[2017-09-02] MEDS ORDERED: LEVOFLOXACIN500 MG ORAL (13:17)
[2017-09-02] MEDS ORDERED: NORVASC2.5 MG ORAL (13:17)
--- NOTE | 2017-09-02 13:23 | Pulmonology Progress Note ---
Assessment/Plan Problems: (1) Bacteremia (2) Sepsis (3) Chest pain (4) Shortness of breath (5) Nausea and vomiting (6) Leucocytosis (7) Hx of CABG (8) History of hypertension (9) CAD (coronary artery disease) Assessment/Plan ct chest done, results reviewed the most recent blood cultures are negative. echo reviewed BC positive for GNB, E Coli, pansensitive continue abx with oral abx upon discharge today check culture symptomatic treatment Subjective ROS Limited/Unobtainable: No Constitutional: Reports: no symptoms HEENT: Repors: no symptoms Respiratory: Reports: no symptoms Allergies: Coded Allergies: No Known Allergies (Unverified , 08/25/17) Objective Last 24 Hour Vital Signs Date Time Temp Pulse Resp B/P (MAP) Pulse Ox O2 Delivery O2 Flow Rate FiO2 09/02/17 12:00 97.6 72 18 143/75 97 97.6 09/02/17 08:45 108/72 09/02/17 08:00 97.8 71 19 125/72 97 97.8 09/02/17 04:00 98.1 75 19 130/85 96 98.1 09/02/17 00:00 97.9 63 19 131/71 96 97.9 09/01/17 21:32 70 18 Room Air 21 09/01/17 20:00 98.6 69 20 147/78 96 98.6 09/01/17 16:52 71 155/78 09/01/17 16:00 98.4 71 16 155/78 97 Room Air 98.4 09/01/17 13:31 85 148/78 Intake and Output 09/01/17 09/02/17 19:00 07:00 Intake Total 850.000 ml Balance 850.000 ml Intake Oral 600 ml IV Total 250.000 ml # Voids 4 4 Objective General Appearance: WD/WN, no acute distress HEENT: atraumatic Respiratory/Chest: normal breath sounds Abdomen: normal bowel sounds, soft, non tender Extremities: no cyanosis Skin: no ulcers Neurologic/Psychiatric: bone density technician II-XII grossly normal, no motor/sensory deficits Current Medications Medications (Trade) Dose Ordered Sig/Rick Route PRN Reason Start Time Stop Time Status Last Admin Dose Admin Acetaminophen (Tylenol) 650 mg Q4H PRN ORAL Mild Pain/Temp > 100.5 08/30/17 17:15 09/29/17 17:14 Amlodipine Besylate (Norvasc) 2.5 mg DAILY@1700 ORAL 08/27/17 17:00 09/25/17 16:59 09/01/17 16:52 Amylase/Lipase/ Protease (Pancrease) 1 ea BID ORAL 09/02/17 18:00 10/02/17 17:59 Aspirin (Ecotrin) 81 mg DAILY ORAL 08/28/17 09:00 09/25/17 08:59 09/02/17 08:39 Atorvastatin Calcium (Lipitor) 20 mg BEDTIME ORAL 08/27/17 21:00 09/24/17 20:59 09/01/17 20:47 Ceftriaxone Sodium 2 gm/ Dextrose 110 ml @ 220 mls/hr Q24H IVPB 08/30/17 06:00 09/06/17 05:59 09/02/17 05:23 Clonidine HCl (Catapres Tab) 0.1 mg EVERY 6 HOURS PRN ORAL For High Blood Pressure 09/01/17 13:30 10/01/17 13:14 Diphenhydramine HCl (Benadryl) 25 mg Q4H PRN IVP Itching 08/30/17 18:45 09/29/17 18:44 Heparin Sodium (Porcine) (Heparin 5000 units/ml) 5,000 units EVERY 12 HOURS SUBQ 08/27/17 21:00 09/24/17 20:59 09/02/17 08:41 Iopamidol (Isovue-370 150ml) 150 ml NOW PRN INJ Radiology Procedure 09/01/17 08:45 09/02/17 23:59 Losartan Potassium (Cozaar) 50 mg DAILY ORAL 08/28/17 09:00 09/26/17 08:59 09/01/17 08:32 Mirtazapine (Remeron) 7.5 mg BEDTIME ORAL 08/27/17 21:00 09/26/17 20:59 09/01/17 20:47 Morphine Sulfate (Morphine Sulfate) 2 mg Q4H PRN IVP Severe Pain (Pain Scale 7-10) 08/27/17 15:00 09/03/17 14:59 08/28/17 11:49 Nitroglycerin (Ntg) 0.4 mg Every 5 Minutes PRN SL Prn Chest Pain 08/27/17 14:45 09/24/17 15:14 Ondansetron HCl (Zofran) 4 mg Q6H PRN IVP Nausea & Vomiting 08/27/17 15:15 09/24/17 15:14 Polyethylene Glycol (Miralax) 17 gm DAILYPRN PRN ORAL Constipation 08/27/17 15:15 09/24/17 15:14 Amber Ryan MD September 02, 2017 13:23
[2017-09-02] MEDS ORDERED: NS 275ml ONE (14:39)
[2017-09-02] MEDS ORDERED: Pancrease Cap ORAL SCH (18:00)
--- NOTE | 2017-09-02 22:48 | General Progress Note ---
Assessment/Plan Assessment/Plan anxiety depression remeron 7.5mg qhs provided ro/st d/w daughter Subjective Date patient seen: September 02, 2017 Neurologic/Psychiatric: Reports: anxiety, depressed, emotional problems Allergies: Coded Allergies: No Known Allergies (Unverified , 08/25/17) Objective Last 24 Hour Vital Signs Date Time Temp Pulse Resp B/P (MAP) Pulse Ox O2 Delivery O2 Flow Rate FiO2 09/02/17 13:28 76 18 Room Air 21 09/02/17 12:00 97.6 72 18 143/75 97 97.6 09/02/17 08:45 108/72 09/02/17 08:00 97.8 71 19 125/72 97 97.8 09/02/17 04:00 98.1 75 19 130/85 96 98.1 09/02/17 00:00 97.9 63 19 131/71 96 97.9 Intake and Output 09/01/17 09/02/17 19:00 07:00 Intake Total 850.000 ml Balance 850.000 ml Intake Oral 600 ml IV Total 250.000 ml # Voids 4 4 Height (Feet): 5 Height (Inches): 1.00 Weight (Pounds): 120 General Appearance: WD/WN, no apparent distress, alert Neurologic: oriented x 3, responsive, depressed affect Oscar Barcenas M.D. September 02, 2017 22:48
--- NOTE | 2017-09-04 17:52 | Discharge Summary ---
Discharge Summary Discharge Summary Discharge Summary DATE OF ADMISSION: 08/25/2017 DATE OF DISCHARGE: 09/02/2017 CONSULTANTS: Dr. Oscar Ray BRIEF HOSPITAL COURSE: Patient is a 76-year-old female, with history of coronary artery disease, coronary artery bypass graft, hypertension, presented to ED with complaints of chest pain for a week. She is a former smoker. Pain was intermittent and lasting for minutes, 5 out of 10 in severity. She also complained of shortness of breath, nausea, vomiting and weakness. She had episode of emesis 2 days prior to admission and had not had appetite since then. She denied diarrhea, fever, chills, abdominal pain. On evaluation at ED, blood work showed WBC 12.4, initial troponin was negative. She was found to have elevated d-dimer. She also complained of dizziness, MRI of the brain was normal. She was admitted to telemetry for evaluation of chest pain. She underwent cardiac evaluation. EKG was in normal sinus rhythm with leftward axis, incomplete left bundle branch conduction defect. There were some nonspecific T- wave changes. Troponins were negative. Telemetry date negative. Echocardiogram showed EF of 60% with normal left ventricular chamber size, function and wall motion. Patient was febrile, temperature 102, and blood culture with gram-negative rods. Urinalysis with growth of Escherichia coli. Blood culture with Escherichia coli. Patient has sepsis possibly secondary to Escherichia coli UTI consistent with bacteremia. Also likely with pyelonephritis given nausea and vomiting. CT of the abdomen and pelvis showed bilateral nonspecific perinephric fat stranding, probably chronic but pyelonephritis and other renal inflammation possible. Renal ultrasound was essentially unremarkable. She was given meropenem. Patient has episodes of anxiety and depression. Patient cries and is irritable and anxious. She was started on Remeron 7.5 mg daily at bedtime. Patient had elevated d-dimer. Venous duplex was negative for DVT. Chest CT was done. Findings showed thoracic aortic aneurysm measuring up to 5 cm. Evidence of prior granulomatous exposure with calcified pulmonary granuloma. 4 mm lung nodule in the superior segment of the right lower lobe. Patient deemed low risk for lung cancer and recommended optional follow-up in 12 months. Repeat blood cultures did not isolate any growth. She was eventually discharged home. FINAL DIAGNOSES: Sepsis with bacteremia Coronary artery disease Hypertension Nausea and vomiting Urinary tract infection with Possible pyelonephritis, Escherichia coli Acute kidney injury Asthma Former smoker Anxiety/major depressive disorder DISPOSITION: Patient was discharged home DISCHARGE MEDICATIONS: Refer to Discharge Medication List. Continue with Levaquin 750 mg daily for 6 more days. DISCHARGE INSTRUCTIONS: Follow up with PCP in a week. I have been assigned to dictate discharge summary on this account, and I was not involved in the patient's management. Nery Loyd NP September 04, 2017 17:52
--- NOTE | 2017-09-08 10:29 | Diagnostic Imaging Report ---
APPROVED REPORT CPT Code: 62437 Present Symptoms Comments: R/O DVT BILATERAL: Imaging reveals a patent deep venous system bilaterally. There is no evidence of thrombus within the femoral, popliteal or tibial segments. The greater saphenous veins are also within normal limits. Doppler indicates normal spontaneous flow within these segments.
== END 2017-09-02 14:40 | disposition home or self-care (01) | DRG 872 ==
LOC: EDBD 12:36 → EMR 13:23 → 2E 13:52 → EDBEDREQ 14:49 → 2E 21:56 → 4E 08-27 14:19
DX: A41.9 Sepsis, unspecified organism (principal); N39.0 Urinary tract infection, site not specified; N12 Tubulo-interstitial nephritis, not specified as acute or chronic; N17.9 Acute kidney failure, unspecified; R07.89 Other chest pain; I10 Essential (primary) hypertension; R06.02 Shortness of breath; R11.2 Nausea with vomiting, unspecified; Z87.891 Personal history of nicotine dependence; I25.10 Atherosclerotic heart disease of native coronary artery without angina pectoris; Z95.1 Presence of aortocoronary bypass graft; I71.2 Thoracic aortic aneurysm, without rupture; B96.20 Unspecified Escherichia coli [E. coli] as the cause of diseases classified elsewhere; J45.909 Unspecified asthma, uncomplicated; F41.9 Anxiety disorder, unspecified; F32.9 Major depressive disorder, single episode, unspecified; R42 Dizziness and giddiness; H93.19 Tinnitus, unspecified ear; Z23 Encounter for immunization
CPT/HCPCS: 36415; 70551; 71045; 71275; 74176; 76770; 80053; 80061; 81001; 82533; 82550; 82553; 83735; 83930; 83935; 84100; 84300; 84439; 84443; 84481; 84484; 84550; 85007; 85025; 85379; 85610; 85651; 85730; 86140; 87040; 87086; 87181; 90732; 93005; 93306; 93970; 94664; 99285; J2405